=== PATIENT | male | born 1990 | race Caucasian/White ===

== ENCOUNTER 2017-10-25 00:54 | Emergency (ER) | payer SELFPAY ==
[2017-10-25 00:58] VITALS: BP 146/76; BMI 39.0
[2017-10-25] MEDS ORDERED: TORADOL 60 MG VIAL IM ONE (01:46)
--- NOTE | 2017-10-25 01:46 | DR.GENAD ---
HPI - Complaint/Symptoms Chief Complaint:: PT STATES THAT HE THINKS HE SPRAINED HIS LT ANKLE TONIGHT AT WORK. STATES THAT HE THINKS HE TURNED THE WRONG WAY. ALSO C/O "SORE PATCH" ON BOTTEM ON LT FOOT. - Source History Provided: Patient - Mode of Arrival Mode of Arrival: Ambulatory - Timing Onset of Chief Complaint: 10/25/17 PMH - PMH Past Medical History: No Past Surgical History: No - Family History History of Family Medical Conditions: Yes Family Medical History: Diabetes Mellitus - Social History Do you use any recreational Drugs:: No - infectious screening Have you traveled outside the country in the last 6 months?: No ROS - Review of Systems Eyes: No Symptoms Reported ENTM: No Symptoms Reported Respiratoy: No Symptoms Reported Cardiovascular: No Symptoms Reported Gastrointestinal/Abdominal: No Symptoms Reported Genitourinary: No Symptoms Reported Neurological: No Symptoms Reported Musculoskeletal: Left, Foot (Pain) Integumentary: No Symptoms Reported Hematologic/Lymphatic: No Symptoms Reported Endocrine: No Symptoms Reported Psychiatric: No Symptoms Reported All Other Systems: Reviewed and Negative PE - Vital Signs Vitals: Temperature 98.3 F Pulse Rate 90 Respiratory Rate 18 Blood Pressure 146/76 O2 Sat by Pulse Oximetry 99 - General Limitations: No Limitations General Appearance: Alert - Head Head Exam: Normal Inspection, Atraumatic - Eyes Eye exam: Normal Appearance, PERRL, EOMI - ENT ENT Exam: Normal Exam External Ear Exam: Normal External Inspection TM/Canal Exam: Bilateral Normal Nose Exam: Normal Nose Exam Mouth Exam: Normal Inspection Throat Exam: Normal Inspection - Neck Neck Exam: Normal Inspection - Chest Chest Inspection: Normal Inspection - Respiratory Respiratory Exam: Normal Lung Sounds Bilat Respiratory Exam: Bilateral Clear to Auscultation - Cardiovascular Cardiovascular Exam: Regular Rate - Abdominal Exam Abdominal Exam: Normal Inspection, Normal Bowel Sounds Abdominal Tenderness: negative: RUQ, RLQ, LUQ, LLQ, Epigastrium, Suprapubic, Diffuse, Mild, Moderate, Severe, Other - Extremities Extremities Exam: Tenderness (left ankle and plantar surface of foot, skin overgrowth) - Back Back Exam: Normal Inspection, Full ROM - Neurologic Neurological Exam: Alert, Oriented X3, CN II-XII Intact - Psychiatric Psychiatric Exam: Normal Affect - Skin Skin Exam: Warm, Dry, Intact ROR - XRAY XRAY Interpreted by: Radiologist, Self (ankle: no fracture or dislocation; bunion) - Diagnosis Discharge Problem: Bunion of left foot Left ankle sprain Qualifiers: Encounter type: initial encounter Involved ligament of ankle: anterior talofibular ligament Qualified Code(s): S93.492A - Sprain of other ligament of left ankle, initial encounter - Discharge Plan Condition: Stable - Follow ups/Referrals Follow ups/Referrals: NFD,None [Primary Care Provider] - 3 days - Instructions
[2017-10-25] MEDS ORDERED: TORADOL 60 MG VIAL ONE (01:47)
--- NOTE | 2017-10-25 02:10 | RAD ---
Three views of the left foot Indication: Left foot pain after injury Findings: No acute fracture or dislocation within the left foot. Lisfranc joint alignment is maintain ed. No localizing soft tissue swelling.. Impression: No acute radiographic abnormality within the left foot. Reported By:
--- NOTE | 2017-10-25 02:11 | RAD ---
Three views of the left ankle Indication: Left ankle pain after injury Findings: There is no fracture or dislocation of the left ankle. Ankle mortise is symmetric. No osteo chondral abnormality within talar dome. Ankle mortise is symmetric. Impression: No radiographic abnormality within the left ankle. Reported By:
== END 2017-10-25 02:00 | disposition home or self-care (01) ==
LOC: ER 00:54
DX: S93.492A Sprain of other ligament of left ankle, initial encounter (principal); M21.612 Bunion of left foot; Y33.XXXA Other specified events, undetermined intent, initial encounter; Y92.69 Other specified industrial and construction area as the place of occurrence of the external cause
CPT/HCPCS: 73610; 73630; 96372; 99282; J1885

== ENCOUNTER 2022-07-22 13:36 | Observation (INO) ==
[2022-07-22 13:45] VITALS: BMI 44.9
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
[2022-07-22] MEDS ORDERED: NS 1,000 ML IV 1,000 ML IV ONE (14:24)
[2022-07-22] MEDS ORDERED: MORPHINE SULFATE INJ 4 MG IVP ONE (14:26)
[2022-07-22] MEDS ORDERED: NS 1,000 ML IV 1,000 ML ONE (14:39)
[2022-07-22] MEDS ORDERED: MORPHINE SULFATE INJ 4 MG ONE (14:39)
[2022-07-22] MEDS ORDERED: CLEOCIN 600 MG IV PREMIX 600 MG/50 ML BAG IV ONE ×2 (14:40→19:51)
--- NOTE | 2022-07-22 14:56 | RAD ---
HISTORYsole of forefoot with abscessSTUDYFOOT, LEFTCOMPARISONNoneTECHNIQUEThree-view left foot.FINDINGSNo acute fracture, malalignment, or aggressive osseous lesion. The joint spaces appear preserved. No cortical destruction or periosteal reaction. Mild soft tissue swelling over the dorsum of the forefoot.IMPRESSIONNo radiographic evidence of osteomyelitis. Consider MRI with and without contrast given the indication.Electronically signed by: Oscar Lopez (Jul 22, 2022 14:54:20)
[2022-07-22 14:58] LABS: BASOPHILS # (AUTO) 0.1 X10^3/uL (0.0-0.1); BASOPHILS % (AUTO) 0.8 % (0.2-1.0); EOSINOPHILS # (AUTO) 0.3 x10^3/uL (0.0-0.2); EOSINOPHILS % (AUTO) 4.3 % (0.9-2.9); HEMATOCRIT 36.2 % (42.0-54.0); HEMOGLOBIN 12.5 g/dL (13.5-18.0); LYMPHOCYTES # (AUTO) 1.7 X10^3/uL (1.3-2.9); LYMPHOCYTES % (AUTO) 22.8 % (21.0-51.0); MEAN CORPUSCULAR HEMOGLOBIN 28.3 pg (27.0-34.0); MEAN CORPUSCULAR HGB CONC 34.5 g/dL (33.0-35.0); MEAN CORPUSCULAR VOLUME 81.9 fL (80.0-100.0); MEAN PLATELET VOLUME 7.2 fL (7.4-11.0); MONOCYTES # (AUTO) 0.5 x10^3/uL (0.3-0.8); NEUTROPHILS # (AUTO) 4.9 x10^3/uL (2.2-4.8); NEUTROPHILS % (AUTO) 66.1 % (42.0-75.0); RED BLOOD COUNT 4.42 X10^6/uL (4.7-6.0); RED CELL DISTRIBUTION WIDTH 13.6 % (11.6-16.5); WHITE BLOOD COUNT 7.5 X10^3/uL (3.6-10.0)
[2022-07-22] MEDS: CLEOCIN 600 MG IV PREMIX 600 MG/50 ML BAG IV SCH ×2 (15:02→21:16)
[2022-07-22 15:09] LABS: ALANINE AMINOTRANSFERASE 76 Units/L (12-78); ALBUMIN 3.2 g/dL (3.4-5.0); ALKALINE PHOSPHATASE 58 Units/L (46-116); ASPARTATE AMINO TRANSFERASE 28 Units/L (15-37); BLOOD UREA NITROGEN 8 mg/dL (7-18); CALCIUM 8.2 mg/dL (8.5-10.1); CARBON DIOXIDE 30.5 mmol/L (21-32); CHLORIDE 103 mmol/L (98-107); COR CA(FOR HYPOALB) 8.8 mg/dL (8.5-10.1); SODIUM 138 mmol/L (136-145); TOTAL PROTEIN 6.7 g/dL (6.4-8.2); eGFR NON BLACK RACES > 60 (>60)
[2022-07-22 15:26] LABS: BILIRUBIN,URINE NEGATIVE (NEGATIVE); BLOOD/HEMOGLOBIN,URINE NEGATIVE (NEGATIVE); GLUCOSE, URINE NEGATIVE (NEGATIVE); KETONES,URINE NEGATIVE (NEGATIVE); LEUKOCYTE ESTERASE ,URINE 3+ (NEGATIVE); NITRITES,URINE NEGATIVE (NEGATIVE); PROTEIN,URINE 1+ (NEGATIVE); UROBILINOGEN,URINE NORMAL (NORMAL)
[2022-07-22 15:34] LABS: LACTIC ACID 0.7 mmol/L (0.4-2.0)
[2022-07-22 15:43] LABS: COLOR,URINE YELLOW (YELLOW)
[2022-07-22 15:44] LABS: APPEARANCE,URINE CLOUDY (CLEAR); BACTERIA,URINE TRACE /HPF (NEGATIVE); RBC,URINE 0-2 /HPF (0-3); SQUAMOUS EPITHELIAL CELL,UR FEW /HPF (NEGATIVE); TRICHOMONAS,URINE FEW /HPF (NEGATIVE)
[2022-07-22] MEDS ORDERED: FLAGYL TAB 250 MG PO ONE (15:48)
[2022-07-22] MEDS ORDERED: TYLENOL 500 MG TAB EXTRA STRENGTH PO PRN (18:33)
[2022-07-22] MEDS: MORPHINE SULFATE INJ 4 MG IVP PRN ×2 (18:34→23:27)
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
[2022-07-22] MEDS ORDERED: NS 250 ML IV 250 ML IV ONE (19:51)
[2022-07-22] MEDS: PERCOCET TAB 5/325 MG PO PRN (21:20)
[2022-07-23] MEDS: CLEOCIN 600 MG IV PREMIX 600 MG/50 ML BAG IV SCH ×3 (05:42→22:20)
[2022-07-23] MEDS: MORPHINE SULFATE INJ 4 MG IVP PRN ×4 (05:44→20:45)
[2022-07-23 06:34] LABS: BASOPHILS % (AUTO) 0.7 % (0.2-1.0); EOSINOPHILS # (AUTO) 0.5 x10^3/uL (0.0-0.2); EOSINOPHILS % (AUTO) 7.8 % (0.9-2.9); HEMATOCRIT 36.4 % (42.0-54.0); HEMOGLOBIN 12.4 g/dL (13.5-18.0); LYMPHOCYTES # (AUTO) 1.7 X10^3/uL (1.3-2.9); LYMPHOCYTES % (AUTO) 29.1 % (21.0-51.0); MEAN CORPUSCULAR HEMOGLOBIN 27.9 pg (27.0-34.0); MEAN CORPUSCULAR HGB CONC 34.1 g/dL (33.0-35.0); MEAN CORPUSCULAR VOLUME 81.7 fL (80.0-100.0); MEAN PLATELET VOLUME 7.3 fL (7.4-11.0); MONOCYTES # (AUTO) 0.4 x10^3/uL (0.3-0.8); MONOCYTES % (AUTO) 7.6 % (0.0-13.0); NEUTROPHILS # (AUTO) 3.2 x10^3/uL (2.2-4.8); NEUTROPHILS % (AUTO) 54.8 % (42.0-75.0); RED BLOOD COUNT 4.45 X10^6/uL (4.7-6.0); RED CELL DISTRIBUTION WIDTH 13.5 % (11.6-16.5); WHITE BLOOD COUNT 5.8 X10^3/uL (3.6-10.0)
[2022-07-23 07:00] LABS: ALANINE AMINOTRANSFERASE 71 Units/L (12-78); ALBUMIN 2.8 g/dL (3.4-5.0); ALKALINE PHOSPHATASE 62 Units/L (46-116); ASPARTATE AMINO TRANSFERASE 28 Units/L (15-37); BLOOD UREA NITROGEN 7 mg/dL (7-18); CALCIUM 7.8 mg/dL (8.5-10.1); CARBON DIOXIDE 28.2 mmol/L (21-32); CHLORIDE 104 mmol/L (98-107); COR CA(FOR HYPOALB) 8.8 mg/dL (8.5-10.1); CREATININE 0.72 mg/dL (0.70-1.30); SODIUM 138 mmol/L (136-145); TOTAL PROTEIN 6.2 g/dL (6.4-8.2); eGFR NON BLACK RACES > 60 (>60)
[2022-07-23] MEDS ORDERED: ANCEF VIAL 1 GRAM ONE (12:28)
[2022-07-23] MEDS ORDERED: NS 1,000 ML IV 1,000 ML ONE (12:29)
[2022-07-23] MEDS ORDERED: NS 100 ML IV 100 ML ONE (12:29)
--- NOTE | 2022-07-23 12:31 | DR.H&P ---
H&P History & Physical for Day of: H&P Date: 07/23/22 Chief Complaint Chief Complaint: Left foot pain Allergies Allergies Allergy/AdvReac Type Severity Reaction Status Date / Time No Known Drug Allergies Allergy Verified 07/22/22 13:38 History of Present Illness History of Present Illness: Pt is a 32 year old male past medical history of substance abuse presenting with left foot pain and swelling for the past 2 days. He reports noticing a callous on the sole of left foot and has "cut" into it in the past to allow it to drain. This time he reports having more pain that is sharp and constant with some redness. Denies any trauma. Labs/imaging: Wbc 5.8, Hgb 12.4, Plt 195, Na 138, K 3.7, Creatinine 0.72, Glucose 103, A1c:5.0, UA negative, UDS:+amphetamine, +thc, COVID-19 negative, Blood cultures pending, XR left foot was obtained that revealed: Mild soft tissue swelling over the dorsum of the forefoot. Pt was admitted for left foot abscess. He was started on antibiotics IV clindamycin 600mg q8h and percocet 5mg q6h prn for pain. Podiatry consulted, will take patient to OR this afternoon for incision and drainage. Will continue to closely monitor and follow up labs. Past Medical History Additional Medical History: IV Drug Abuse - + Tox screen for amphetamines and marijuana Past Surgical History Surgical History: No History Family History Family Medical History: Diabetes Mellitus and Cancer Social History Does patient currently use any type of tobacco product: Yes Have you used tobacco products in the last 12 months: Yes Type of Tobacco Use: Cigarettes How many years tobacco product used: 10 Does any household member use tobacco: No Alcohol Use: None Drug Use: None Medications Home Medications: No Known Drug Allergies Allergy (Verified 07/22/22 13:38) CONTINUE taking the following medications NK 07/22/22 [History] Labs Result Diagrams: 07/23/22 06:14 07/23/22 06:14 Labs: Laboratory WBC 5.8 X10^3/uL (3.6-10.0) 07/23/22 06:14 RBC 4.45 X10^6/uL (4.7-6.0) L 07/23/22 06:14 Hgb 12.4 g/dL (13.5-18.0) L 07/23/22 06:14 Hct 36.4 % (42.0-54.0) L 07/23/22 06:14 MCV 81.7 fL (80.0-100.0) 07/23/22 06:14 MCH 27.9 pg (27.0-34.0) 07/23/22 06:14 MCHC 34.1 g/dL (33.0-35.0) 07/23/22 06:14 RDW 13.5 % (11.6-16.5) 07/23/22 06:14 Plt Count 195 X10^3/uL (150.0-450.0) 07/23/22 06:14 MPV 7.3 fL (7.4-11.0) L 07/23/22 06:14 Neut % (Auto) 54.8 % (42.0-75.0) 07/23/22 06:14 Lymph % (Auto) 29.1 % (21.0-51.0) 07/23/22 06:14 Story % (Auto) 7.6 % (0.0-13.0) 07/23/22 06:14 Eos % (Auto) 7.8 % (0.9-2.9) H 07/23/22 06:14 Baso % (Auto) 0.7 % (0.2-1.0) 07/23/22 06:14 Neut # (Auto) 3.2 x10^3/uL (2.2-4.8) 07/23/22 06:14 Lymph # (Auto) 1.7 X10^3/uL (1.3-2.9) 07/23/22 06:14 Story # (Auto) 0.4 x10^3/uL (0.3-0.8) 07/23/22 06:14 Eos # (Auto) 0.5 x10^3/uL (0.0-0.2) H 07/23/22 06:14 Baso # (Auto) 0.0 X10^3/uL (0.0-0.1) 07/23/22 06:14 Absolute Nucleated RBC 0.0 /100WBC 07/23/22 06:14 Sodium 138 mmol/L (136-145) 07/23/22 06:14 Corrected Sodium TNP 07/23/22 06:14 Potassium 3.7 mmol/L (3.5-5.1) 07/23/22 06:14 Chloride 104 mmol/L (98-107) 07/23/22 06:14 Carbon Dioxide 28.2 mmol/L (21-32) 07/23/22 06:14 BUN 7 mg/dL (7-18) 07/23/22 06:14 Creatinine 0.72 mg/dL (0.70-1.30) 07/23/22 06:14 Est GFR (MDRD) Af Amer > 60 (>60) 07/23/22 06:14 Est GFR (MDRD) Non-Af > 60 (>60) 07/23/22 06:14 Glucose 103 mg/dL (65-99) H 07/23/22 06:14 Hemoglobin A1c 5.0 % 07/23/22 06:14 Lactic Acid 0.7 mmol/L (0.4-2.0) 07/22/22 14:42 Calcium 7.8 mg/dL (8.5-10.1) L 07/23/22 06:14 Corrected Calcium 8.8 mg/dL (8.5-10.1) 07/23/22 06:14 Total Bilirubin 0.20 mg/dL (0.2-1.0) 07/23/22 06:14 AST 28 Units/L (15-37) 07/23/22 06:14 ALT 71 Units/L (12-78) 07/23/22 06:14 Alkaline Phosphatase 62 Units/L (46-116) 07/23/22 06:14 Total Protein 6.2 g/dL (6.4-8.2) L 07/23/22 06:14 Albumin 2.8 g/dL (3.4-5.0) L 07/23/22 06:14 Globulin 3.4 g/dL (2.5-4.5) 07/23/22 06:14 Albumin/Globulin Ratio 0.8 Ratio (1.1-2.1) L 07/23/22 06:14 Specimen Type Clean catch urine 07/22/22 14:51 Urine Color Yellow (YELLOW) 07/22/22 14:51 Urine Appearance Cloudy (CLEAR) 07/22/22 14:51 Urine pH 6.0 (5.0 - 8.0) 07/22/22 14:51 Ur Specific [place] 1.020 (1.000-1.030) 07/22/22 14:51 Urine Protein 1+ (NEGATIVE) 07/22/22 14:51 Urine Glucose (UA) Negative (NEGATIVE) 07/22/22 14:51 Urine Ketones Negative (NEGATIVE) 07/22/22 14:51 Urine Blood Negative (NEGATIVE) 07/22/22 14:51 Urine Nitrite Negative (NEGATIVE) 07/22/22 14:51 Urine Bilirubin Negative (NEGATIVE) 07/22/22 14:51 Urine Urobilinogen Normal (NORMAL) 07/22/22 14:51 Ur Leukocyte Esterase 3+ (NEGATIVE) 07/22/22 14:51 Urine RBC 0-2 /HPF (0-3) 07/22/22 14:51 Urine WBC 20-30 /HPF (0-5) A 07/22/22 14:51 Ur Squamous Epith Cells Few /HPF (NEGATIVE) 07/22/22 14:51 Urine Bacteria Trace /HPF (NEGATIVE) 07/22/22 14:51 Urine Trichomonas Few /HPF (NEGATIVE) 07/22/22 14:51 Ur Culture Indicated? No/not indicated 07/22/22 14:51 Urine Opiates Screen Negative (NEG=<300) 07/22/22 14:51 Urine Methadone Screen Negative (NEG=<300) 07/22/22 14:51 Ur Barbiturates Screen Negative (NEG=<200) 07/22/22 14:51 Ur Phencyclidine Scrn Negative (NEG=<25) 07/22/22 14:51 Ur Amphetamines Screen Positive (NEG=<1000) 07/22/22 14:51 U Benzodiazepines Scrn Negative (NEG=<200) 07/22/22 14:51 Urine Cocaine Screen Negative (NEG=<300) 07/22/22 14:51 U Marijuana (THC) Screen Negative (NEG=<50) 07/22/22 14:51 SARS-CoV-2 (PCR) Negative (NEGATIVE) 07/22/22 15:13 Review of Systems Constitutional: No Symptoms Reported Eyes: No Symptoms Reported ENT: No Symptoms Reported Respiratory: No Symptoms Reported Cardiovascular: No Symptoms Reported Gastrointestinal: No Symptoms Reported Genitourinary: No Symptoms Reported Musculoskeletal: Other (Pain on palpation of his left foot globally. Painful passive and active ROM to digits. ) Skin: Other (left foot) Neurological: Other (Light touch and protective sensation intact.) Physical Exam Vital Signs: Temperature 97.6 F Pulse Rate [Left Brachial] 82 Pulse Rate 105 Respiratory Rate 20 Blood Pressure [Left Arm] 131/77 Blood Pressure 139/77 O2 Sat by Pulse Oximetry 98 Oriented: Normal Eyes: Normal Ear: Normal Nose: Normal Throat: Normal Respiratory: Clear Throughout Cardiovascular: Normal : Normal Auscultation: Bowel Sounds: Normal Palpation: Normal Tenderness: Normal Skin: Other (Left foot has palpable abscess on the plantar aspect of the 2nd and 3rd metatarsal heads. Hyperkeratotic lesion. Some erythema and fluctuant. ) Musculoskeletal: Normal Psychiatric: Normal Mood Description: Calm and Appropriate Affect: Normal Speech Pattern: Clear and Appropriate Assessment/Plan (1) Foot abscess, left: Narrative Support Text: Continue IV abx Podiatry consulted with plan to I&D this afternoon Status: Acute (2) Cellulitis of left foot: Status: Acute (3) Amphetamine abuse: Status: Acute Review H&P Reviewed: Yes Patient was examined?: Yes
[2022-07-23] MEDS ORDERED: MARCAINE 0.5% ONE (13:04)
[2022-07-23] MEDS ORDERED: FENTANYL VIAL INJ 100 mcg ONE (13:13)
[2022-07-23] MEDS ORDERED: KETAMINE HCL ONE (13:13)
[2022-07-23] MEDS ORDERED: DIPRIVAN VIAL ONE (13:13)
[2022-07-23] MEDS ORDERED: VERSED ONE (13:13)
[2022-07-23] MEDS ORDERED: [UNRECOGNIZED DRUG - SUPPLY] TOP SCH (14:30)
[2022-07-23] MEDS: PERCOCET TAB 5/325 MG PO PRN (14:40)
--- NOTE | 2022-07-23 14:42 | DR.OPNOTE ---
OP NOTE Pre-Op Diagnosis: 1. Left plantar foot abscess with cellulitis Post-Op Diagnosis: Same Procedure Date Date Of Procedure: 07/23/22 Procedure: Indications: This is a 32 year old male who presented to the emergency room for left foot pain with swelling to the bottom of his foot. He has significant history of IV drug use with multiple positive drugs on toxicology screen over the last visits. Podiatry was consulted for left foot abscess. Patient has a palpable mass on the plantar aspect of his left foot around the second, third, and fourth metatarsal heads along the weight bearing surface. There is a hyperkeratotic lesion present in this area as well. He admits a friend tried to debride this callus with a razor several days ago and it has subsequently gotten worse over time. The apparent abscess measures approximately 3 cm in diameter, is fluctuant, and has an erythematous base extending approximately 2 cm in all directions from the lesion including onto the dorsum of the foot. The left foot is also edematous in the forefoot, most notably on the dorsum of the foot around digits 2 and 3. His vascular status appears intact with palpable pulses, hair growth present to bilateral feet, and good capillary refill time to throughout the foot. Neurologically his protective and light touch sensation is also intact with no focal deficits. He is still able to flex and extend his digits actively, although this causes him a lot of pain. He has a rectus foot type with mildly contracted lesser digits bilaterally. With all this in mind, X-rays were ordered. These did not reveal any soft tissue emphysema or osseous erosions of the metatarsals and surrounding bones, only some soft tissue swelling in the area of the abscess. Standard labs were also ordered, his white blood cell count and neutrophils are within normal limits. I did also order an HgbA1c which was 5. His vitals have been stable throughout his visit. Additionally, his admitting position started him on clindamycin, as well as gave him a dose of flagyl. I have extensively discussed treatment options with him. I have discussed surgery as well as all the risks associated with today's procedure. I have given him no guarantees as to the outcome. Knowing this, he expressed verbal and written consent to proceed. All of his questions have been answered to the best of my ability. Procedures: After satisfactory preoperative evaluation the patient was brought back to the operating room and placed on the operative table in the supine position. The nurse bicycle service technician administered IV sedation in an appropriate amount to achieve sedation. A timeout was held in regards to patient, procedure, allergies, antibiotics and laterality. All in the room were in agreement. A well-padded pneumatic tourniquet was then placed on the left ankle and set to 250 mmHg, however it was not inflated throughout the case. The left foot was then prepped and draped in a sterile fashion and the left foot was lower it onto the operative field. Attention was directed to the plantar aspect of the left forefoot where there was a large fluctuate mass. Local anesthesia was provided in the form of approximately 30 cc's of 0.5 percent Marcaine plain - I did this in a v block fashion on the dorsal aspect of the foot, as well as in the intermetatarsal spaces two through four, and the planter aspect of the foot about the metatarsal bases. Once anesthesia was achieved I utilized a number 15 blade to create a linear incision directly over the mass extending from just proximal to the digital sulcus into the plantar midfoot. The incision measured approximately 5 cm in length and was down to the level of the subcutaneous tissue. Upon incision there was a yellowish, thick, foul smelling drainage that exuded which amounted to approximately 5 cc's. I then utilized the set of culture swabs to get a deep culture of this fluid. This was passed off and sent for aerobic / anaerobic / gram stain microbiological examination. I then utilized a curved hemostat to bluntly dissect through the subcutaneous tissues and down to the level of the deep fascia. Next, I utilized a freer elevator to probe and all directions to identify any tracks or sinuses. I did identify one probable track through the intermetatarsal space that led dorsally. I extended the freer elevator through this space until it reached the dorsal skin. I use this as a landmark and utilizing a 15 blade created a linear incision over the freer, measuring approximately 1 cm in length and down to the level of the subcutaneous tissues. I once again utilize the curved hemostat to bluntly dissect down to the level of the extensor tendons. I then utilized the freer elevator to probe in all directions, but was unable to find any further tracking. At this time I utilize the Prontosan to copiously lavage out the area both plantarly and dorsally. I then reinvestigated the abscess plantarly and noted a moderate amount of discolored non-viable tissue down to the level of the deep fascia. I then used a rongeur to excise any of this tissue until I was satisfied that all the margins contained only healthy, viable, bleeding tissue. I once again lavaged the surgical site with the Prontosan. Following this, I did not appreciate any extension of the infection into any osseous structures. With this in mind I did not feel it was necessary nor pertinent to take a bone biopsy, as I did not want to violate the cortex of the metatarsal. I then utilized the 0.25-in Iodoform packing to gently pack it into the plantar aspect of the abscess , leaving a 2 cm tail extending out of the wound bed. I then repeated this process for the do rsal aspect of the foot surgical incision as well. Once I was satisfied that the foot was devoid of all infected tissue and copiously lavaged again with the Prontosan and turned my attention to closure. With the amount of drainage that was present I did not feel it was appropriate to primarily close the entire wound, so I elected for a partial closure with the packing. I utilized a 3-0 nylon to close the skin of both incisions in a simple interrupted fashion leaving room for the packing and any potential drainage. Next, a soft sterile dressing was applied consisting of 4x4 gauze, leigh ann, and an Teodoro wrap. The patient tolerated anesthesia and the procedure well and was returned to his room on the floor following a period of post-operative monitoring. Post-op Orders: Dispense surgical shoe, to be worn at all times while out of bed. Non weight bearing to the left forefoot. Weight bearing to the heel only for transfers and while in the post-operative shoe. Elevate operative extremity times two pillows Leave dressing intact, reinforce as needed with cling and Teodoro wrap for any strikethrough. Will remove the packing 24-48 hours after surgery. Adjust antibiotic therapy to be targeted towards deep cultures. Pain medication regimen orders in place. Adjust as needed, history of drug abuse. Type of Anesthesia: Local (MAC with local) Findings: Left foot shows a plantar abscess along the heads of metatarsals 2-4. This area is red, hot, and swollen with an area of erythema extending approximately 2cm around the central abscess. Upon incising the abscess there was a galan of yellow, foul smelling drainage, approximately 5cc's worth. The abscess was down to the level of deep fascia, but there was not extension to the osseous structures that I could appreciate. All devitalized tissue surrounding the abscess was sharply excised down to the level of deep fascia. Specimen/Pathology: Left foot abscess material was cultured (x2) and sent for aero/anaerobic culture with gram stain. EBL: 20cc Drains/Tubes Comment: Iodoform packing (x2 locations) of left foot Hardware: None Cultures: Left plantar forefoot abscess Complications:: None Needle/Sponge Count:: Correct Disposition/Condition: Pt. tolerated anesthesia and the procedure well. Returned to room on floor following period of post operative monitoring.
[2022-07-23] MEDS ORDERED: PERCOCET TAB 5/325 MG PO ONE (18:26)
[2022-07-23] MEDS ORDERED: PERCOCET TAB 5/325 MG ONE (18:26)
[2022-07-24] MEDS: MORPHINE SULFATE INJ 4 MG IVP PRN ×4 (00:30→12:35)
[2022-07-24] MEDS: PERCOCET TAB 5/325 MG PO PRN ×3 (02:00→16:55)
[2022-07-24] MEDS: CLEOCIN 600 MG IV PREMIX 600 MG/50 ML BAG IV SCH (05:21)
[2022-07-24 05:22] LABS: BASOPHILS # (AUTO) 0.1 X10^3/uL (0.0-0.1); BASOPHILS % (AUTO) 0.7 % (0.2-1.0); EOSINOPHILS # (AUTO) 0.4 x10^3/uL (0.0-0.2); EOSINOPHILS % (AUTO) 3.6 % (0.9-2.9); HEMOGLOBIN 12.8 g/dL (13.5-18.0); LYMPHOCYTES # (AUTO) 1.4 X10^3/uL (1.3-2.9); LYMPHOCYTES % (AUTO) 12.6 % (21.0-51.0); MEAN CORPUSCULAR HEMOGLOBIN 28.3 pg (27.0-34.0); MEAN CORPUSCULAR HGB CONC 34.7 g/dL (33.0-35.0); MEAN CORPUSCULAR VOLUME 81.5 fL (80.0-100.0); MEAN PLATELET VOLUME 7.4 fL (7.4-11.0); MONOCYTES # (AUTO) 0.6 x10^3/uL (0.3-0.8); MONOCYTES % (AUTO) 5.6 % (0.0-13.0); NEUTROPHILS # (AUTO) 8.5 x10^3/uL (2.2-4.8); NEUTROPHILS % (AUTO) 77.5 % (42.0-75.0); RED BLOOD COUNT 4.54 X10^6/uL (4.7-6.0); RED CELL DISTRIBUTION WIDTH 13.6 % (11.6-16.5)
[2022-07-24 05:42] LABS: ALANINE AMINOTRANSFERASE 63 Units/L (12-78); ALBUMIN 3.1 g/dL (3.4-5.0); ALKALINE PHOSPHATASE 65 Units/L (46-116); ASPARTATE AMINO TRANSFERASE 27 Units/L (15-37); BLOOD UREA NITROGEN 8 mg/dL (7-18); CALCIUM 8.1 mg/dL (8.5-10.1); CARBON DIOXIDE 30.3 mmol/L (21-32); CHLORIDE 101 mmol/L (98-107); COR CA(FOR HYPOALB) 8.8 mg/dL (8.5-10.1); CREATININE 0.84 mg/dL (0.70-1.30); SODIUM 137 mmol/L (136-145); TOTAL PROTEIN 6.8 g/dL (6.4-8.2); eGFR NON BLACK RACES > 60 (>60)
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
[2022-07-24 12:23] VITALS: BP 150/84
--- NOTE | 2022-07-24 13:11 | NOTE.SOAP ---
Soap Note Note for Day of Date of Exam: 07/24/22 Subjective Data Subjective Data: Patient was seen bedside today with nursing staff member present. Dressing appears disheveled with toes unwrapped and post operative shoe bedside. Patient states he had moderate to severe pain last night which was helped by his IV and PO pain medications. He states he had not walked on his foot due to the pain. Following a 4mg morphine dose administration for bandage changes he did not state any further pain at this time. Patient denies f,c,n,v,sob, and cp. Objective Data Objective Data: VASC: DP/PT pulses are palpable (2/4) bilaterally. CFT is brisk to all digits bilaterally. Hair growth noted to bilateral feet in equal distribution. Moderate non-pitting edema remains in left forefoot but at a lessened level than yesteraday. No varicosities. DERM: Incisions are acceptably coapted at this time - plantar incision has an area centrally that has been left open intentionally to allow for drainage and prevent further abscess formation. Sutures are intact for both incisions. Packing present which was pulled without incident today, no packing added as the surgical sites do not demonstrate an empty space. Erythema noted to left forefoot, lessening over time. NEURO: Protective and light touch sensation intact. No focal deficits noted. MSK: Pain on palpation of left forefoot. Able to wiggle digits actively on left. No pain on compression of posterior muscle group or other signs of DVT. Compartments are soft and compressible. Assessment Assessment: -S/p Left foot I&D of multiple compartments (DOS 07-23-22) -Left forefoot abscess, plantar, submet 2-4 -Left foot cellulitis -Hx of IV drug abuse - PICC lines with caution Plan Plan: -Patient evaluated today and chart reviewed. -From my standpoint he is okay for DC with outpatient follow up in clinic (2 weeks from today) in [place]. -Abx: Doxycycline 100mg BID and Cipro 500 BID for 14 days. Placed in chart. Will follow cultures and adjust as needed at clinic follow up. -Post operative shoe dispensed, noted bedside. -Pain control: [place] 5mg Q6H for 5 days. Placed in chart. -Wound care instructions: Daily dressing changes with gauze, leigh ann, and an LELIA wrap. Placed in chart. Dressing changed today prior to DC. -WB to left heel only and only while in post operative shoe. Crutches were offered to aid in ambulation but patient deferred. -Instructed patient to call for any further signs of abscess formation or wors ening of infection. Instructed to keep the area clean, dry, and covered at all times - he asked if he could "let it breath" and I instructed him this was never a good idea. -Okay for DC, thank you for involving me in the care of this patient.
--- NOTE | 2022-07-29 10:20 | W.DIS.FURT ---
Summary of Discharge Discharge Summary of Date Date of Exam: 07/24/22 Admission Date Date of Admission: 07/22/22 Admission Diagnosis Patient Problems (Updated 07/22/22 @ 18:50 by Edu Avila) Cellulitis of left foot (Acute) L03.116 Hospital Course: Pt is a 32 year old male past medical history of substance abuse admitted for abscess of left foot. He was started on antibiotics:IV clindamycin. Podiatry was consulted-Dr Hernandez, and Incision and drainage was performed. Culture was obtained, results pending to be followed outpatient. Pt responded well to treatments. He was discharged with antibiotics ciprofloxacin and doxycycline. Orders were placed for daily wound changes and he will follow up in 2 weeks with podiatry. Pt discharged in stable condition. Labs: Laboratory Last Values WBC 11.0 X10^3/uL (3.6-10.0) H 07/24/22 04:58 RBC 4.54 X10^6/uL (4.7-6.0) L 07/24/22 04:58 Hgb 12.8 g/dL (13.5-18.0) L 07/24/22 04:58 Hct 37.0 % (42.0-54.0) L 07/24/22 04:58 MCV 81.5 fL (80.0-100.0) 07/24/22 04:58 MCH 28.3 pg (27.0-34.0) 07/24/22 04:58 MCHC 34.7 g/dL (33.0-35.0) 07/24/22 04:58 RDW 13.6 % (11.6-16.5) 07/24/22 04:58 Plt Count 229 X10^3/uL (150.0-450.0) 07/24/22 04:58 MPV 7.4 fL (7.4-11.0) 07/24/22 04:58 Neut % (Auto) 77.5 % (42.0-75.0) H 07/24/22 04:58 Lymph % (Auto) 12.6 % (21.0-51.0) L 07/24/22 04:58 [place] % (Auto) 5.6 % (0.0-13.0) 07/24/22 04:58 Eos % (Auto) 3.6 % (0.9-2.9) H 07/24/22 04:58 Baso % (Auto) 0.7 % (0.2-1.0) 07/24/22 04:58 Neut # (Auto) 8.5 x10^3/uL (2.2-4.8) H 07/24/22 04:58 Lymph # (Auto) 1.4 X10^3/uL (1.3-2.9) 07/24/22 04:58 [place] # (Auto) 0.6 x10^3/uL (0.3-0.8) 07/24/22 04:58 Eos # (Auto) 0.4 x10^3/uL (0.0-0.2) H 07/24/22 04:58 Baso # (Auto) 0.1 X10^3/uL (0.0-0.1) 07/24/22 04:58 Absolute Nucleated RBC 0.0 /100WBC 07/24/22 04:58 Sodium 137 mmol/L (136-145) 07/24/22 04:58 Corrected Sodium TNP 07/24/22 04:58 Potassium 4.4 mmol/L (3.5-5.1) 07/24/22 04:58 Chloride 101 mmol/L (98-107) 07/24/22 04:58 Carbon Dioxide 30.3 mmol/L (21-32) 07/24/22 04:58 BUN 8 mg/dL (7-18) 07/24/22 04:58 Creatinine 0.84 mg/dL (0.70-1.30) 07/24/22 04:58 Est GFR (MDRD) Af Amer > 60 (>60) 07/24/22 04:58 Est GFR (MDRD) Non-Af > 60 (>60) 07/24/22 04:58 Glucose 103 mg/dL (65-99) H 07/24/22 04:58 Hemoglobin A1c 5.0 % 07/23/22 06:14 Lactic Acid 0.7 mmol/L (0.4-2.0) 07/22/22 14:42 Calcium 8.1 mg/dL (8.5-10.1) L 07/24/22 04:58 Corrected Calcium 8.8 mg/dL (8.5-10.1) 07/24/22 04:58 Total Bilirubin 0.30 mg/dL (0.2-1.0) 07/24/22 04:58 AST 27 Units/L (15-37) 07/24/22 04:58 ALT 63 Units/L (12-78) 07/24/22 04:58 Alkaline Phosphatase 65 Units/L (46-116) 07/24/22 04:58 Total Protein 6.8 g/dL (6.4-8.2) 07/24/22 04:58 Albumin 3.1 g/dL (3.4-5.0) L 07/24/22 04:58 Globulin 3.7 g/dL (2.5-4.5) 07/24/22 04:58 Albumin/Globulin Ratio 0.8 Ratio (1.1-2.1) L 07/24/22 04:58 Specimen Type Clean catch urine 07/22/22 14:51 Urine Color Yellow (YELLOW) 07/22/22 14:51 Urine Appearance Cloudy (CLEAR) 07/22/22 14:51 Urine pH 6.0 (5.0 - 8.0) 07/22/22 14:51 Ur Specific [place] 1.020 (1.000-1.030) 07/22/22 14:51 Urine Protein 1+ (NEGATIVE) 07/22/22 14:51 Urine Glucose (UA) Negative (NEGATIVE) 07/22/22 14:51 Urine Ketones Negative (NEGATIVE) 07/22/22 14:51 Urine Blood Negative (NEGATIVE) 07/22/22 14:51 Urine Nitrite Negative (NEGATIVE) 07/22/22 14:51 Urine Bilirubin Negative (NEGATIVE) 07/22/22 14:51 Urine Urobilinogen Normal (NORMAL) 07/22/22 14:51 Ur Leukocyte Esterase 3+ (NEGATIVE) 07/22/22 14:51 Urine RBC 0-2 /HPF (0-3) 07/22/22 14:51 Urine WBC 20-30 /HPF (0-5) A 07/22/22 14:51 Ur Squamous Epith Cells Few /HPF (NEGATIVE) 07/22/22 14:51 Urine Bacteria Trace /HPF (NEGATIVE) 07/22/22 14:51 Urine Trichomonas Few /HPF (NEGATIVE) 07/22/22 14:51 Ur Culture Indicated? No/not indicated 07/22/22 14:51 Urine Opiates Screen Negative (NEG=<300) 07/22/22 14:51 Urine Methadone Screen Negative (NEG=<300) 07/22/22 14:51 Ur Barbiturates Screen Negative (NEG=<200) 07/22/22 14:51 Ur Phencyclidine Scrn Negative (NEG=<25) 07/22/22 14:51 Ur Amphetamines Screen Positive (NEG=<1000) 07/22/22 14:51 U Benzodiazepines Scrn Negative (NEG=<200) 07/22/22 14:51 Urine Cocaine Screen Negative (NEG=<300) 07/22/22 14:51 U Marijuana (THC) Screen Negative (NEG=<50) 07/22/22 14:51 SARS-CoV-2 (PCR) Negative (NEGATIVE) 07/22/22 15:13 Reason For Visit: LEFT FOOT ABSCESS WITH CELLULITIS Discharge Diagnosis All Active Problems (Updated 07/22/22 @ 18:50 by Edu Avila) Foot abscess, left (Acute) Dermatitis (Active) Gastroenteritis (Acute) Abdominal pain (Acute) Left ankle sprain (Acute) Bunion of left foot (Acute) Knee sprain (Acute) Fall (Acute) Multiple transverse process fractures (Acute) Fracture of transverse process of lumbar vertebra (Acute) Fracture of rib (Acute) STI (sexually transmitted infection) (Acute) Acute epididymitis (Acute) Tooth ache (Acute) Dental caries (Acute) Pain, dental (Acute) Acute gingivitis (Acute) Jaw pain (Acute) Back pain without sciatica (Acute) Elbow abrasion (Acute) Pain, dental (Acute) Elbow fracture (Acute) Gingivitis (Acute) Urinary tract stones (Acute) OD (overdose of drug) (Acute) UTI (urinary tract infection) (Acute) Opiate addiction (Acute) Amphetamine abuse (Acute) Cellulitis of left foot (Acute) Plan of Treatment: Continue with present treatment and follow up plan. Pt is to keep follow up appointment as instructed and take medications as ordered. Discharge Medications Discharge Medications: No Known Drug Allergies Allergy (Verified 07/22/22 13:38) New Prescriptions ciprofloxacin HCl 500 mg tablet 500 mg PO BID 14 days #28 tabs 07/24/22 [Rx] doxycycline hyclate 100 mg capsule 100 mg PO BID 14 days #28 caps 07/24/22 [Rx] Discharge Disposition Discharge Disposition: Home Discharge Condition: Stable Discharge Plan Discharge Plan Hospital Course: Pt is a 32 year old male past medical history of substance abuse admitted for abscess of left foot. He was started on antibiotics:IV clindamycin. Podiatry was consulted-Dr Hernandez, and Incision and drainage was performed. Culture was obtained, results pending to be followed outpatient. Pt responded well to treatments. He was discharged with antibiotics ciprofloxacin and doxycycline. Orders were placed for daily wound changes and he will follow up in 2 weeks with podiatry. Pt discharged in stable condition. Patient Disposition: 01 HOME, SELF-CARE Condition: Stable Health Concerns: Post Hospitalization: new medications and changes needed to prevent readmission or further decline. Pt educated and given instructions on all concerns. Plan of Treatment: Continue with present treatment and follow up plan. Pt is to keep follow up appointment as instructed and take medications as ordered. Prescriptions: New doxycycline hyclate 100 mg Capsule 100 mg PO BID 14 Days Qty: 28 0RF ciprofloxacin HCl 500 mg Tablet 500 mg PO BID 14 Days Qty: 28 0RF Orders to Discharge Patient Discharge Orders: Discharge (Routine); Ordered 07/24/22 Ordered By: Edu Avila Follow ups/Referrals Follow ups/Referrals: Heath Hernandez [CONSULTING PHYSICIAN] - 08/07/22 2:00 pm Kit HANKS [Primary Care Provider] - 3 days Instructions Instructions: Skin Abscess, Cellulitis, Adult, Skin Abscess, [id number], Cellulitis, Adult, [id number], Incision and Drainage, Care After Activity Restrictions/Additional Instructions: DRESSING CHANGE ORDERS: CHANGE DAILY TO LEFT FOOT. WRAP WITH GAUZE, PIA, AND AN LELIA WRAP. Stand Alone Forms: Excuse From Work or School, Precautions for COVID19, [facility], Patient Portal, Social Distancing
== END 2022-07-24 17:05 | disposition home or self-care (01) ==
LOC: MED/SURG 13:36 → ER 13:36 → MED/SURG 17:30
PROVIDERS: ADMIT Family Medicine; ATTEND Family Medicine
DX: M79.89 Other specified soft tissue disorders; L03.116 Cellulitis of left lower limb; B95.7 Other staphylococcus as the cause of diseases classified elsewhere; Z20.822 Contact with and (suspected) exposure to COVID-19; F15.10 Other stimulant abuse, uncomplicated; L02.612 Cutaneous abscess of left foot

== ENCOUNTER 2023-01-24 22:55 | Inpatient (IN) ==
[2023-01-24] MEDS ORDERED: PHARMACY CONSULT - VANCOMYCIN XX SCH (23:45)
--- NOTE | 2023-01-24 23:47 | DR.PEXTPAI ---
HPI Time seen Time Seen by Provider: 01/24/23 23:46 PCP Primary Care Physician: DEMARIO HPI Comment HPI Comment: HISTORY BELOW. Complaint/Symptoms Chief Complaint Doctor Comments: REDNESS SWELLING LEFT HAND, FOREARM AND ELBOW. PATIENT WAS IN ER 01/13/2023 WITH SAME SYMPTOM. WAS ADMITTED TO HOSPITAL. HE SIGN OUT AMA. SEEN IN ER 01/22/2023. US LUE DONE AND SUPERFICIAL PHLEBITIS NOTED. DISCHARGE HOME ON BACTRIM DS.. HAVE NOT STARTED TAKING MED YET. BLOOD CULTURE DONE 01/13/2023 GREWSTREP ANGINOSUS SENSITIVE TO PENICILLIN AND CEPHALOSPORINS. HERE TODAY WITH WORSENING OF HIS LUE SYMPTOMS. HE IS RUNNING LOW GRADE FEVER. Chief Complaint:: PT STATES THE LUMP ON HIS LEFT OUTER ARM CAME UP TWO NIGHTS CAME UP. HE STATES HE IS HURTING VERY BAD. IT IS NOTED TO BE VERY RED AND LARGE. THE INNER AC OF THE ARM IS ALSO RED, SWOLLEN AND PAINFUL. Self Treatment fo Chief Complaint: ANTIBIOTICS PRESCRIBED BY ER DOCTOR TWO NIGHTS AGO. Source History Provided: Patient Mode of arrival Mode of Arrival: Ambulatory Timing Onset of Chief Complaint: 01/09/23 PMH Past Surgical History Past Surgical History: Yes Family History History of Family Medical Conditions: Yes Social Does patient currently use any type of tobacco product: Yes Type of Tobacco Use: Cigarettes Alcohol Use: None Vaccines Pneumococcal Vaccine Every 5 Yrs: No infectious screening Have you traveled outside the country in the last 6 months?: No Isolation: Standard ROS (PED) Review of Systems Constitutional: Chills and Fever Eyes: No Symptoms Reported ENTM: No Symptoms Reported; negative Nasal Discharge or Nose Congestion Respiratoy: No Symptoms Reported; negative Moist Cough, Short of Breath or Wheezing Cardiovascular: No Symptoms Reported; negative Chest Pain Gastrointestinal/Abdominal: negative Abdominal Pain, Diarrhea or Vomiting Genitourinary: No Symptoms Reported; negative Dysuria Neurological: negative Headache or Dizziness Musculoskeletal: Elbow (LT), Forearm (LT) and Hand (LT) Integumentary: Other (REDNESS, SWELLING FOREARM, ELBOW AND HAND ON LEFT SIDE.) Hematologic/Lymphatic: No Symptoms Reported; negative Easy Bruising or Swollen Glands Endocrine: No Symptoms Reported; negative Increased Thirst or Increased Urine Psychiatric: No Symptoms Reported All Other Systems: Reviewed and Negative PE Vital Signs Vitals: Temperature 99.1 F Pulse Rate 118 Respiratory Rate 20 Blood Pressure [Left Arm] 133/68 Blood Pressure 128/67 O2 Sat by Pulse Oximetry 99 General Limitations: No Limitations General Appearance: Alert and In No Apparent Distress Head Head Exam: Normal Inspection Eyes Eye exam: Normal Appearance; negative Scleral Icterus or Conjunctival Injection ENT ENT Exam: Normal Exam, Normal Oropharynx, Normal External Ear Exam and TM's Normal Bilaterally Neck Neck Exam: Normal Inspection and Trachea Midline; negative Tenderness Chest Chest Inspection: Normal Inspection and Symmetric Chest Wall Rise; negative Tenderness Respiratory Respiratory Exam: Normal Lung Sounds Bilat; negative Accessory Muscle Use, Chest Wall Tenderness or Respiratory Distress Respiratory Exam: Bilateral: Clear to Auscultation Cardiovascular Cardiovascular Exam: Regular Rate, Normal Rhythm and Normal Heart Sounds; negative Systolic Murmur or Diastolic Murmur Abdominal Exam Abdominal Exam: Normal Inspection, Normal Bowel Sounds and Soft; negative Tenderness Extremities Extremities Exam: Tenderness (REDNESS, SWELLING AND TENDERNESS LEFT HAND, FOREARM, ELBOW AND LOWER UPPER ARM ON LEFT SIDE.) Upper Extremities Forearm Exam: Other (LEFT FOREARM WITH ARM SWELLING THAT IS LITZY AND TENDER/ABSCESS.) Upper Ext. Vascular Exam: Capillary Refill (INTACT.), Radial Pulse (INTACT.) and Ulnar Pulse (INTACT.) Back Back Exam: Normal Inspection; negative (R) CVA Tenderness or (L) CVA Tenderness Neurological Neurological Exam: Alert and Oriented X3; negative Motor Sensory Deficit Psychiatric Psychiatric Exam: Normal Affect and Normal Mood Skin Type of Lesion: Abscess (LT FOREARM.) and Other (CELLULITIS LUE.) MDM Differential Diagnosis Differential Diagnosis: Other (BACTEREMIA, CELLULIRIS LUE, ABSCESS LUE.) COURSE Treatment Treatment: SEE ORDERS DONE WHILE PATIENT WAS IN ER. PATIENT WITH BACTERIA, LUE CELLULITIS WHO IS IN ER IS ADMITTED TO HOSPITAL FOR FURTHER MANAGEMENT. GIVEN TORADOL 30MG IV AND VANCOMYCIN 1G IVPB ANS IS WHILE IN ER. Consultation Consultation Comments: DISCUSSED PATIENT WITH DR. MATSON. HE WILL ADMIT PATIENT. Education/Counseling Education/Counseling: Patient ROR Labs Reviewed Laboratory Results Reviewed?: Yes Result Diagrams: 01/26/23 09:49 01/26/23 09:49 Laboratory: 01/25/23 00:20 Blood Blood Culture - Final 01/25/23 00:01 Blood Blood Culture - Final WBC 16.7 X10^3/uL (3.6-10.0) H 01/25/23 00:01 RBC 4.48 X10^6/uL (4.7-6.0) L 01/25/23 00:01 Hgb 11.6 g/dL (13.5-18.0) L 01/25/23 00:01 Hct 35.0 % (42.0-54.0) L 01/25/23 00:01 MCV 78.2 fL (80.0-100.0) L 01/25/23 00:01 MCH 26.0 pg (27.0-34.0) L 01/25/23 00:01 MCHC 33.2 g/dL (33.0-35.0) 01/25/23 00:01 RDW 15.2 % (11.6-16.5) 01/25/23 00:01 Plt Count 359 X10^3/uL (150.0-450.0) 01/25/23 00:01 MPV 6.7 fL (7.4-11.0) L 01/25/23 00:01 Neut % (Auto) 79.6 % (42.0-75.0) H 01/25/23 00:01 Lymph % (Auto) 12.3 % (21.0-51.0) L 01/25/23 00:01 [place] % (Auto) 5.9 % (0.0-13.0) 01/25/23 00:01 Eos % (Auto) 0.9 % (0.9-2.9) 01/25/23 00:01 Baso % (Auto) 1.3 % (0.2-1.0) H 01/25/23 00:01 Neut # (Auto) 13.3 x10^3/uL (2.2-4.8) H 01/25/23 00:01 Lymph # (Auto) 2.1 X10^3/uL (1.3-2.9) 01/25/23 00:01 [place] # (Auto) 1.0 x10^3/uL (0.3-0.8) H 01/25/23 00:01 Eos # (Auto) 0.2 x10^3/uL (0.0-0.2) 01/25/23 00:01 Baso # (Auto) 0.2 X10^3/uL (0.0-0.1) H 01/25/23 00:01 Absolute Nucleated RBC 0.0 /100WBC 01/25/23 00:01 Sodium 138 mmol/L (136-145) 01/25/23 00:01 Corrected Sodium TNP 01/25/23 00:01 Potassium 3.9 mmol/L (3.5-5.1) 01/25/23 00:01 Chloride 100 mmol/L (98-107) 01/25/23 00:01 Carbon Dioxide 25.3 mmol/L (21-32) 01/25/23 00:01 BUN 22 mg/dL (7-18) H 01/25/23 00:01 Creatinine 1.13 mg/dL (0.70-1.30) 01/25/23 00:01 Est GFR (MDRD) Af Amer > 60 (>60) 01/25/23 00:01 Est GFR (MDRD) Non-Af > 60 (>60) 01/25/23 00:01 Glucose 86 mg/dL (65-99) 01/25/23 00:01 Hemoglobin A1c 5.3 % 01/25/23 00:01 Calcium 8.7 mg/dL (8.5-10.1) 01/25/23 00:01 Corrected Calcium 9.5 mg/dL (8.5-10.1) 01/25/23 00:01 Iron 20 ug/dL (50-175) L 01/25/23 00:01 Transferrin 209 mg/dL (202-364) 01/25/23 00:01 Ferritin 303 ng/mL (26-388) 01/25/23 00:01 Total Bilirubin 0.10 mg/dL (0.2-1.0) L 01/25/23 00:01 AST 13 Units/L (15-37) L 01/25/23 00:01 ALT 12 Units/L (12-78) 01/25/23 00:01 Alkaline Phosphatase 70 Units/L (46-116) 01/25/23 00:01 Total Protein 7.5 g/dL (6.4-8.2) 01/25/23 00:01 Albumin 3.0 g/dL (3.4-5.0) L 01/25/23 00:01 Globulin 4.5 g/dL (2.5-4.5) 01/25/23 00:01 Albumin/Globulin Ratio 0.7 Ratio (1.1-2.1) L 01/25/23 00:01 Vitamin B12 194 pg/mL (193-986) 01/25/23 00:01 Folate 2.1 ng/mL (>8.6) L 01/25/23 00:01 Specimen Type Clean catch urine 01/24/23 23:40 Urine Color Dark yellow (YELLOW) 01/24/23 23:40 Urine Appearance Clear (CLEAR) 01/24/23 23:40 Urine pH 5.0 (5.0 - 8.0) 01/24/23 23:40 Ur Specific [place] 1.030 (1.000-1.030) 01/24/23 23:40 Urine Protein 2+ (NEGATIVE) 01/24/23 23:40 Urine Glucose (UA) Negative (NEGATIVE) 01/24/23 23:40 Urine Ketones 1+ (NEGATIVE) 01/24/23 23:40 Urine Blood 1+ (NEGATIVE) 01/24/23 23:40 Urine Nitrite Negative (NEGATIVE) 01/24/23 23:40 Urine Bilirubin Negative (NEGATIVE) 01/24/23 23:40 Urine Urobilinogen Normal (NORMAL) 01/24/23 23:40 Ur Leukocyte Esterase Negative (NEGATIVE) 01/24/23 23:40 Urine RBC 3-5 /HPF (0-3) A 01/24/23 23:40 Urine WBC 0-2 /HPF (0-5) 01/24/23 23:40 Ur Squamous Epith Cells Few /HPF (NEGATIVE) 01/24/23 23:40 Urine Bacteria Trace /HPF (NEGATIVE) 01/24/23 23:40 Hyaline Casts Few /LPF (NEGATIVE) 01/24/23 23:40 Urine Mucus Few /HPF (NEGATIVE) 01/24/23 23:40 Ur Culture Indicated? No/not indicated 01/24/23 23:40 Urine Opiates Screen Negative (NEG=<300) 01/24/23 23:40 Urine Methadone Screen Negative (NEG=<300) 01/24/23 23:40 Ur Barbiturates Screen Negative (NEG=<200) 01/24/23 23:40 Ur Phencyclidine Scrn Negative (NEG=<25) 01/24/23 23:40 Ur Amphetamines Screen Positive (NEG=<1000) 01/24/23 23:40 U Benzodiazepines Scrn Negative (NEG=<200) 01/24/23 23:40 Urine Cocaine Screen Negative (NEG=<300) 01/24/23 23:40 U Marijuana (THC) Screen Negative (NEG=<50) 01/24/23 23:40 Opioid Opioid Risk Tool Personal Hx of Substance Abuse: Illegal Drugs Age (Rashi box if 16-45): Yes History of Preadolescent Sexual Abuse: No Total: 1 Total Score Risk Category: Low Risk Copyright: Rodolfo VELAZCO predicting aberrant behaviors Discharge Plan Diagnosis Discharge Problem: Bacteremia, Cellulitis of left upper extremity, Substance abuse Discharge Plan Patient Disposition: 09 ADMITTED INPATIENT
[2023-01-24] MEDS ORDERED: TORADOL 30 MG VIAL IVP ONE (23:54)
[2023-01-24] MEDS ORDERED: VANCOMYCIN IV *PREMIX 1 G/200 ML BAG 1 G/200 ML PIGGYBACK IV ONE (23:57)
[2023-01-25 00:20] LABS: BASOPHILS # (AUTO) 0.2 X10^3/uL (0.0-0.1); BASOPHILS % (AUTO) 1.3 % (0.2-1.0); EOSINOPHILS # (AUTO) 0.2 x10^3/uL (0.0-0.2); EOSINOPHILS % (AUTO) 0.9 % (0.9-2.9); HEMOGLOBIN 11.6 g/dL (13.5-18.0); LYMPHOCYTES # (AUTO) 2.1 X10^3/uL (1.3-2.9); LYMPHOCYTES % (AUTO) 12.3 % (21.0-51.0); MEAN CORPUSCULAR HGB CONC 33.2 g/dL (33.0-35.0); MEAN CORPUSCULAR VOLUME 78.2 fL (80.0-100.0); MEAN PLATELET VOLUME 6.7 fL (7.4-11.0); MONOCYTES % (AUTO) 5.9 % (0.0-13.0); NEUTROPHILS # (AUTO) 13.3 x10^3/uL (2.2-4.8); NEUTROPHILS % (AUTO) 79.6 % (42.0-75.0); RED BLOOD COUNT 4.48 X10^6/uL (4.7-6.0); RED CELL DISTRIBUTION WIDTH 15.2 % (11.6-16.5); WHITE BLOOD COUNT 16.7 X10^3/uL (3.6-10.0)
[2023-01-25 00:41] LABS: BILIRUBIN,URINE NEGATIVE (NEGATIVE); BLOOD/HEMOGLOBIN,URINE 1+ (NEGATIVE); GLUCOSE, URINE NEGATIVE (NEGATIVE); KETONES,URINE 1+ (NEGATIVE); LEUKOCYTE ESTERASE ,URINE NEGATIVE (NEGATIVE); NITRITES,URINE NEGATIVE (NEGATIVE); PROTEIN,URINE 2+ (NEGATIVE); UROBILINOGEN,URINE NORMAL (NORMAL)
[2023-01-25 00:41] LABS: ALANINE AMINOTRANSFERASE 12 Units/L (12-78); ALKALINE PHOSPHATASE 70 Units/L (46-116); ASPARTATE AMINO TRANSFERASE 13 Units/L (15-37); BLOOD UREA NITROGEN 22 mg/dL (7-18); CALCIUM 8.7 mg/dL (8.5-10.1); CARBON DIOXIDE 25.3 mmol/L (21-32); CHLORIDE 100 mmol/L (98-107); COR CA(FOR HYPOALB) 9.5 mg/dL (8.5-10.1); CREATININE 1.13 mg/dL (0.70-1.30); SODIUM 138 mmol/L (136-145); TOTAL PROTEIN 7.5 g/dL (6.4-8.2); eGFR NON BLACK RACES > 60 (>60)
[2023-01-25 00:44] LABS: APPEARANCE,URINE CLEAR (CLEAR); COLOR,URINE DARK YELLOW (YELLOW)
[2023-01-25 00:53] LABS: BACTERIA,URINE TRACE /HPF (NEGATIVE); HYALINE CASTS, URINE FEW /LPF (NEGATIVE); SQUAMOUS EPITHELIAL CELL,UR FEW /HPF (NEGATIVE)
[2023-01-25] MEDS ORDERED: ZOFRAN TAB 4 MG PO PRN (02:39)
[2023-01-25 02:56] VITALS: BMI 26.2
[2023-01-25] MEDS: TORADOL 30 MG VIAL IVP PRN ×4 (03:05→21:18)
[2023-01-25] MEDS: XANAX PO PRN ×3 (03:06→17:56)
[2023-01-25] MEDS: ZOSYN VIAL 3.375 GRAMS 3.375 G in NS 100 ML IV 100 ML IV SCH ×3 (03:17→21:18)
[2023-01-25 05:30] LABS: BASOPHILS # (AUTO) 0.1 X10^3/uL (0.0-0.1); BASOPHILS % (AUTO) 0.9 % (0.2-1.0); EOSINOPHILS # (AUTO) 0.2 x10^3/uL (0.0-0.2); EOSINOPHILS % (AUTO) 1.4 % (0.9-2.9); HEMATOCRIT 31.2 % (42.0-54.0); HEMOGLOBIN 10.5 g/dL (13.5-18.0); LYMPHOCYTES % (AUTO) 12.6 % (21.0-51.0); MEAN CORPUSCULAR HEMOGLOBIN 26.2 pg (27.0-34.0); MEAN CORPUSCULAR HGB CONC 33.7 g/dL (33.0-35.0); MEAN CORPUSCULAR VOLUME 77.8 fL (80.0-100.0); MEAN PLATELET VOLUME 6.8 fL (7.4-11.0); MONOCYTES % (AUTO) 6.3 % (0.0-13.0); NEUTROPHILS # (AUTO) 12.6 x10^3/uL (2.2-4.8); NEUTROPHILS % (AUTO) 78.8 % (42.0-75.0)
[2023-01-25 05:45] LABS: ALANINE AMINOTRANSFERASE 10 Units/L (12-78); ALBUMIN 2.6 g/dL (3.4-5.0); ALKALINE PHOSPHATASE 63 Units/L (46-116); ASPARTATE AMINO TRANSFERASE 12 Units/L (15-37); BLOOD UREA NITROGEN 22 mg/dL (7-18); CALCIUM 8.6 mg/dL (8.5-10.1); CARBON DIOXIDE 20.4 mmol/L (21-32); CHLORIDE 103 mmol/L (98-107); COR CA(FOR HYPOALB) 9.7 mg/dL (8.5-10.1); SODIUM 137 mmol/L (136-145); TOTAL PROTEIN 6.6 g/dL (6.4-8.2); eGFR NON BLACK RACES > 60 (>60)
[2023-01-25] MEDS ORDERED: MICRO K EXTEN CAP 10 MEQ PO PRN (06:21)
[2023-01-25] MEDS ORDERED: KLOR-CON PO PRN (06:21)
[2023-01-25] MEDS ORDERED: POTASSIUM CHL 60 MEQ/NS 0.45% 500 ML IV PRN (06:21)
[2023-01-25] MEDS ORDERED: K-DUR TAB 20 MEQ PO PRN (06:21)
[2023-01-25] MEDS ORDERED: K-RIDER 10 MEQ/NS 100 ML 10 MEQ/100 ML BAG IV PRN (06:21)
[2023-01-25] MEDS ORDERED: POTASSIUM CHL 40 MEQ/NS 0.45% 500 ML IV PRN (06:21)
[2023-01-25] MEDS ORDERED: POTASSIUM CHLORIDE LIQ 20 MEQ UDC PO PRN (06:21)
[2023-01-25] MEDS: NORCO 10/325 TAB PO PRN ×4 (08:02→22:37)
[2023-01-25] MEDS ORDERED: VANCOMYCIN IV *PREMIX 1 G/200 ML BAG 1 G/200 ML PIGGYBACK IV SCH (09:00)
[2023-01-25] MEDS: VSL#3 PO SCH (09:03)
[2023-01-25] MEDS: VANCOMYCIN IV *PREMIX 1.5 G/300 ML BAG 1.5 G/300 ML PIGGYBACK IV SCH ×2 (09:25→20:25)
[2023-01-25] MEDS: MAGNESIUM SULFATE 1 GRAM/100 mL PREMIX 1 G/100 ML BAG IV PRN ×2 (12:00→14:00)
--- NOTE | 2023-01-25 13:56 | DR.CONSULT ---
CONSULT Consultation for Day of: Date: 01/25/23 Chief Complaint Chief Complaint: Patient with redness and swelling of left radial forearm and left antecubital fossa at site on illicit drug use by injection. He was seen in the ER at [place] 01/13 for phlebitis of these areas and left AMA without getting prescriptions for po antibiotics. Now areas left arm are worse. Allergies Allergies Allergy/AdvReac Type Severity Reaction Status Date / Time No Known Drug Allergies Allergy Verified 07/22/22 13:38 History of Present Illness History of Present Illness: See above Past Medical History Past Medical History: GERD and Headaches Additional Medical History: IV Drug Abuse - + Tox screen for amphetamines and marijuana Past Surgical History Surgical History: Ortho Surgery Family History Family Medical History: Diabetes Mellitus, Cancer, [place] and Hypertension Social History Does patient currently use any type of tobacco product: Yes Have you used tobacco products in the last 12 months: Yes Type of Tobacco Use: Cigarettes Alcohol Use: None Drug Use: Other Medications Home Medications: No Known Drug Allergies Allergy (Verified 07/22/22 13:38) Review of Systems Constitutional: See HPI Eyes: No Symptoms Reported ENT: No Symptoms Reported Respiratory: No Symptoms Reported Cardiovascular: No Symptoms Reported Gastrointestinal: No Symptoms Reported Genitourinary: No Symptoms Reported Musculoskeletal: No Symptoms Reported Skin: See HPI Neurological: No Symptoms Reported Physical Exam Vital Signs: Temperature 97.9 F Pulse Rate [Right] 84 Pulse Rate 118 Respiratory Rate 20 Blood Pressure [Left Arm] 123/71 Blood Pressure 128/67 O2 Sat by Pulse Oximetry 97 Oriented: Normal, Time, Person and Place Eyes: Normal Ear: Normal Nose: Normal Throat: Normal Respiratory: Clear Throughout Cardiovascular: Normal : Normal Auscultation: Bowel Sounds: Normal Palpation: Normal Tenderness: Normal Skin: Other (5cm diameter abscess to the left radial arm with another area 10x8 cm of fluctuance left antecubital fossa. Evidence of needle guerra both areas left arm as described above ) Musculoskeletal: Normal Psychiatric: Normal Mood Description: Calm Affect: Normal Speech Pattern: Clear Plan (1) Superficial thrombophlebitis of left upper extremity: Status: Acute (2) Current recreational drug use: Status: Acute (3) Cellulitis: Status: Acute Qualifiers: Laterality: left Site of cellulitis: extremity Site of cellulitis of extremity: upper extremity Qualified Code(s): L03.114 - Cellulitis of left upper limb (4) Amphetamine abuse: Status: Acute (5) Abscess of left forearm: Status: Acute (6) Hypokalemia: Status: Acute (7) Microcytic anemia: Status: Acute (8) Abscess of left arm: Status: Acute Plan: Continue IV antibiotics. Will plan incision and drainage both areas of the left arm.
[2023-01-25] MEDS: NS 1,000 ML IV 1,000 ML IV SCH (17:48)
[2023-01-25] MEDS: RESTORIL CAP 15 MG PO PRN (23:48)
[2023-01-26] MEDS: TORADOL 30 MG VIAL IVP PRN ×3 (02:46→23:40)
[2023-01-26] MEDS: ZOSYN VIAL 3.375 GRAMS 3.375 G in NS 100 ML IV 100 ML IV SCH ×3 (05:05→22:28)
[2023-01-26] MEDS: NS 1,000 ML IV 1,000 ML IV SCH ×2 (08:02→22:28)
[2023-01-26] MEDS: VSL#3 PO SCH (08:03)
--- NOTE | 2023-01-26 08:06 | DR.H&P ---
H&P History & Physical for Day of: H&P Date: 01/25/23 Chief Complaint Chief Complaint: Left posterior forearm swelling and left hand and left forearm pain. Allergies Allergies Allergy/AdvReac Type Severity Reaction Status Date / Time No Known Drug Allergies Allergy Verified 07/22/22 13:38 History of Present Illness History of Present Illness: This is a 32-year-old white male who presented to the emergency department last night with a swelling in the left posterior forearm that came up 2 nights before he reports. He had been seen earlier in January and was admitted for treatment of cellulitis of the left hand and forearm. He is a IV drug abuser and his urine drug screen showed he was positive for amphetamines on this admission and previous admission. He reports he is in a lot of pain and reports a low-grade fever as well. On his last hospitalization after 2 or 3 days he checked himself out AMA and was given a prescription for Bactrim DS and did not feel this. He was seen in the emergency department on January 22, 2023 and given an antibiotic by the ER doctor but apparently he is not taking that as well either. Previous blood culture from the previous hospital location showed that he grew out Streptococcus anginosus that is sensitive to cephalosporins and penicillins. Ultrasound was done of his hand and forearm last night that showed thrombophlebitis and no DVT was seen. We subsequently admitted him for IV antibiotic therapy with IV vancomycin and Zosyn and we put in for a surgical consult as well. Past Medical History Past Medical History: GERD and Headaches Additional Medical History: IV Drug Abuse - + Tox screen for amphetamines and marijuana Past Surgical History Surgical History: Ortho Surgery Family History Family Medical History: Diabetes Mellitus, Cancer, [place] and Hypertension Social History Does patient currently use any type of tobacco product: Yes Have you used tobacco products in the last 12 months: Yes Type of Tobacco Use: Cigarettes Alcohol Use: None Drug Use: Other Medications Home Medications: No Known Drug Allergies Allergy (Verified 07/22/22 13:38) Labs Result Diagrams: 01/25/23 04:55 01/25/23 12:59 Labs: Laboratory WBC 16.0 X10^3/uL (3.6-10.0) H 01/25/23 04:55 RBC 4.00 X10^6/uL (4.7-6.0) L 01/25/23 04:55 Hgb 10.5 g/dL (13.5-18.0) L 01/25/23 04:55 Hct 31.2 % (42.0-54.0) L 01/25/23 04:55 MCV 77.8 fL (80.0-100.0) L 01/25/23 04:55 MCH 26.2 pg (27.0-34.0) L 01/25/23 04:55 MCHC 33.7 g/dL (33.0-35.0) 01/25/23 04:55 RDW 15.0 % (11.6-16.5) 01/25/23 04:55 Plt Count 303 X10^3/uL (150.0-450.0) 01/25/23 04:55 MPV 6.8 fL (7.4-11.0) L 01/25/23 04:55 Neut % (Auto) 78.8 % (42.0-75.0) H 01/25/23 04:55 Lymph % (Auto) 12.6 % (21.0-51.0) L 01/25/23 04:55 [place] % (Auto) 6.3 % (0.0-13.0) 01/25/23 04:55 Eos % (Auto) 1.4 % (0.9-2.9) 01/25/23 04:55 Baso % (Auto) 0.9 % (0.2-1.0) 01/25/23 04:55 Neut # (Auto) 12.6 x10^3/uL (2.2-4.8) H 01/25/23 04:55 Lymph # (Auto) 2.0 X10^3/uL (1.3-2.9) 01/25/23 04:55 [place] # (Auto) 1.0 x10^3/uL (0.3-0.8) H 01/25/23 04:55 Eos # (Auto) 0.2 x10^3/uL (0.0-0.2) 01/25/23 04:55 Baso # (Auto) 0.1 X10^3/uL (0.0-0.1) 01/25/23 04:55 Absolute Nucleated RBC 0.0 /100WBC 01/25/23 04:55 Sodium 137 mmol/L (136-145) 01/25/23 04:55 Corrected Sodium TNP 01/25/23 04:55 Potassium 3.4 mmol/L (3.5-5.1) L 01/25/23 04:55 Chloride 103 mmol/L (98-107) 01/25/23 04:55 Carbon Dioxide 20.4 mmol/L (21-32) L 01/25/23 04:55 BUN 22 mg/dL (7-18) H 01/25/23 04:55 Creatinine 1.10 mg/dL (0.70-1.30) 01/25/23 04:55 Est GFR (MDRD) Af Amer > 60 (>60) 01/25/23 04:55 Est GFR (MDRD) Non-Af > 60 (>60) 01/25/23 04:55 Glucose 104 mg/dL (65-99) H 01/25/23 04:55 Hemoglobin A1c 5.3 % 01/25/23 00:01 Calcium 8.6 mg/dL (8.5-10.1) 01/25/23 04:55 Corrected Calcium 9.7 mg/dL (8.5-10.1) 01/25/23 04:55 Magnesium 1.8 mg/dL (2.0-2.9) L 01/25/23 04:55 Total Bilirubin 0.20 mg/dL (0.2-1.0) 01/25/23 04:55 AST 12 Units/L (15-37) L 01/25/23 04:55 ALT 10 Units/L (12-78) L 01/25/23 04:55 Alkaline Phosphatase 63 Units/L (46-116) 01/25/23 04:55 Total Protein 6.6 g/dL (6.4-8.2) 01/25/23 04:55 Albumin 2.6 g/dL (3.4-5.0) L 01/25/23 04:55 Globulin 4.0 g/dL (2.5-4.5) 01/25/23 04:55 Albumin/Globulin Ratio 0.7 Ratio (1.1-2.1) L 01/25/23 04:55 Specimen Type Clean catch urine 01/24/23 23:40 Urine Color Dark yellow (YELLOW) 01/24/23 23:40 Urine Appearance Clear (CLEAR) 01/24/23 23:40 Urine pH 5.0 (5.0 - 8.0) 01/24/23 23:40 Ur Specific [place] 1.030 (1.000-1.030) 01/24/23 23:40 Urine Protein 2+ (NEGATIVE) 01/24/23 23:40 Urine Glucose (UA) Negative (NEGATIVE) 01/24/23 23:40 Urine Ketones 1+ (NEGATIVE) 01/24/23 23:40 Urine Blood 1+ (NEGATIVE) 01/24/23 23:40 Urine Nitrite Negative (NEGATIVE) 01/24/23 23:40 Urine Bilirubin Negative (NEGATIVE) 01/24/23 23:40 Urine Urobilinogen Normal (NORMAL) 01/24/23 23:40 Ur Leukocyte Esterase Negative (NEGATIVE) 01/24/23 23:40 Urine RBC 3-5 /HPF (0-3) A 01/24/23 23:40 Urine WBC 0-2 /HPF (0-5) 01/24/23 23:40 Ur Squamous Epith Cells Few /HPF (NEGATIVE) 01/24/23 23:40 Urine Bacteria Trace /HPF (NEGATIVE) 01/24/23 23:40 Hyaline Casts Few /LPF (NEGATIVE) 01/24/23 23:40 Urine Mucus Few /HPF (NEGATIVE) 01/24/23 23:40 Ur Culture Indicated? No/not indicated 01/24/23 23:40 Urine Opiates Screen Negative (NEG=<300) 01/24/23 23:40 Urine Methadone Screen Negative (NEG=<300) 01/24/23 23:40 Ur Barbiturates Screen Negative (NEG=<200) 01/24/23 23:40 Ur Phencyclidine Scrn Negative (NEG=<25) 01/24/23 23:40 Ur Amphetamines Screen Positive (NEG=<1000) 01/24/23 23:40 U Benzodiazepines Scrn Negative (NEG=<200) 01/24/23 23:40 Urine Cocaine Screen Negative (NEG=<300) 01/24/23 23:40 U Marijuana (THC) Screen Negative (NEG=<50) 01/24/23 23:40 Review of Systems Constitutional: Fever, Chills and Malaise Eyes: No Symptoms Reported ENT: No Symptoms Reported Respiratory: No Symptoms Reported Cardiovascular: No Symptoms Reported Gastrointestinal: No Symptoms Reported Genitourinary: No Symptoms Reported Musculoskeletal: Arm Pain and Hand Pain Skin: Lesions and Wound Neurological: No Symptoms Reported Physical Exam Vital Signs: Temperature 97.9 F Pulse Rate [Right] 89 Pulse Rate 118 Respiratory Rate 18 Blood Pressure [Left Arm] 133/63 Blood Pressure 128/67 O2 Sat by Pulse Oximetry 92 Oriented: Normal, Time, Person and Place; negative Not Oriented Eyes: Normal Ear: Normal Nose: Normal Respiratory: Clear Throughout Cardiovascular: Normal Auscultation: Bowel Sounds: Normal Palpation: Normal Tenderness: Normal Skin: Red, Tender and Hot Musculoskeletal: Left, Forearm (Erythema and ping-pong sized lump) and Hand Psychiatric: Normal Affect: Normal Speech Pattern: Clear and Appropriate; negative Delayed or Slurred Assessment/Plan (1) Superficial thrombophlebitis of left upper extremity: Status: Acute Plan: Pain control and IV antibiotics. IV ketorolac. (2) Current recreational drug use: Status: Acute Plan: Counseled on amphetamine cessation. (3) Cellulitis: Qualifiers: Laterality: left Site of cellulitis: extremity Site of cellulitis of extremity: upper extremity Qualified Code(s): L03.114 - Cellulitis of left upper limb Status: Acute Plan: IV vancomycin and Zosyn. (4) Amphetamine abuse: Status: Acute Plan: Counseled on amphetamine cessation. (5) Abscess of left forearm: Status: Acute Plan: Consultation with general surgery. Pain control with IV ketorolac a nd p.o. hydrocodoneacetaminophen. (6) Hypokalemia: Status: Acute Plan: Potassium replacement protocol. (7) Microcytic anemia: Status: Acute Plan: Check anemia panel. Review H&P Reviewed: Yes Patient was examined?: Yes
[2023-01-26] MEDS ORDERED: ZOFRAN INJ 4 MG VIAL ONE (08:49)
[2023-01-26] MEDS ORDERED: VERSED ONE (08:49)
[2023-01-26] MEDS ORDERED: XYLOCAINE 2 % (PLAIN) ONE (08:49)
[2023-01-26] MEDS ORDERED: TORADOL 30 MG VIAL ONE ×2 (08:49→23:42)
[2023-01-26] MEDS ORDERED: KETAMINE HCL ONE (08:49)
[2023-01-26] MEDS ORDERED: FENTANYL VIAL INJ 100 mcg ONE ×2 (08:49→09:01)
[2023-01-26] MEDS ORDERED: PEPCID 20 MG VIAL ONE (08:49)
[2023-01-26] MEDS ORDERED: PRECEDEX INJ VIAL IVP ONE (08:49)
[2023-01-26] MEDS ORDERED: ROBINUL ONE (08:49)
[2023-01-26] MEDS ORDERED: OFIRMEV IV 1000 MG VIAL IV ONE (08:49)
[2023-01-26] MEDS ORDERED: DIPRIVAN VIAL ONE (08:49)
--- NOTE | 2023-01-26 09:19 | OR.IMMED ---
IMMEDIATE POST-OP NOTE Immediate Post-Op Note Pre-Op Diagnosis: Left arm abscesses x 2 Post-Op Diagnosis: same Procedure: I & D 5 cm abcesses left radial forearm and left antecubital fossa Description of Procedure: see operative summary Surgeon/Medical Economics Consultant: Arielle Findings: as above Estimated Blood Loss: < 10 cc Complications: none Discharge Progress Notes: Return to floor , continue IV antibiotics and daily dressing changes
[2023-01-26 09:57] LABS: BASOPHILS % (AUTO) 0.2 % (0.2-1.0); EOSINOPHILS # (AUTO) 0.1 x10^3/uL (0.0-0.2); EOSINOPHILS % (AUTO) 0.7 % (0.9-2.9); HEMATOCRIT 29.3 % (42.0-54.0); HEMOGLOBIN 9.7 g/dL (13.5-18.0); LYMPHOCYTES # (AUTO) 1.1 X10^3/uL (1.3-2.9); LYMPHOCYTES % (AUTO) 9.3 % (21.0-51.0); MEAN CORPUSCULAR HEMOGLOBIN 26.1 pg (27.0-34.0); MEAN CORPUSCULAR HGB CONC 33.3 g/dL (33.0-35.0); MEAN CORPUSCULAR VOLUME 78.6 fL (80.0-100.0); MEAN PLATELET VOLUME 6.4 fL (7.4-11.0); MONOCYTES # (AUTO) 0.8 x10^3/uL (0.3-0.8); MONOCYTES % (AUTO) 6.5 % (0.0-13.0); NEUTROPHILS # (AUTO) 9.7 x10^3/uL (2.2-4.8); NEUTROPHILS % (AUTO) 83.3 % (42.0-75.0); RED BLOOD COUNT 3.73 X10^6/uL (4.7-6.0); RED CELL DISTRIBUTION WIDTH 15.1 % (11.6-16.5); WHITE BLOOD COUNT 11.7 X10^3/uL (3.6-10.0)
[2023-01-26] MEDS: NORCO 10/325 TAB PO PRN ×4 (10:04→21:17)
[2023-01-26 10:18] LABS: ALANINE AMINOTRANSFERASE 8 Units/L (12-78); ALBUMIN 2.3 g/dL (3.4-5.0); ALKALINE PHOSPHATASE 51 Units/L (46-116); ASPARTATE AMINO TRANSFERASE 9 Units/L (15-37); BLOOD UREA NITROGEN 8 mg/dL (7-18); CALCIUM 8.2 mg/dL (8.5-10.1); CARBON DIOXIDE 24.8 mmol/L (21-32); CHLORIDE 104 mmol/L (98-107); COR CA(FOR HYPOALB) 9.6 mg/dL (8.5-10.1); CREATININE 0.69 mg/dL (0.70-1.30); SODIUM 136 mmol/L (136-145); TOTAL PROTEIN 6.1 g/dL (6.4-8.2); eGFR NON BLACK RACES > 60 (>60)
[2023-01-26] MEDS: XANAX PO PRN ×2 (10:18→17:37)
[2023-01-26 10:20] LABS: VANCOMYCIN,TROUGH 3.7 ug/mL (15-20)
[2023-01-26] MEDS: VANCOMYCIN IV *PREMIX 1.5 G/300 ML BAG 1.5 G/300 ML PIGGYBACK IV SCH ×3 (11:04→21:13)
--- NOTE | 2023-01-26 15:09 | PCM.PROG ---
Progress Note Progress Note for Day of Date of Exam: 01/26/23 Subjective Subjective: No acute problems this morning. Patient headed to the OR for I&D. Past Medical Family Social History Allergies: Allergies No Known Drug Allergies Allergy (Verified 07/22/22 13:38) Review of Systems ROS: No change since H&P Vital Signs and I&O's Vital Signs: Temperature 97.9 F Pulse Rate [Right] 95 Pulse Rate 118 Respiratory Rate 20 Blood Pressure [Left Arm] 139/70 Blood Pressure 128/67 O2 Sat by Pulse Oximetry 100 Intake and Output: Intake & Output 01/24/23 01/25/23 01/26/23 01/27/23 11:59 11:59 11:59 11:59 Intake Total 720 / 720 4960 / 4960 Output Total 450 / 450 4010 / 4010 Balance 270 / 270 950 / 950 Physical Exam Oriented: Normal, Time, Person and Place Eyes: Normal Ear: Normal Nose: Normal Throat: Normal Cardiovascular: Normal : Normal Auscultation: Bowel Sounds: Normal Tenderness: Normal Skin: Other (5cm diameter abscess to the left radial arm with another area 10x8 cm of fluctuance left antecubital fossa. Evidence of needle guerra both areas left arm as described above ) Musculoskeletal: Normal Psychiatric: Normal Mood Description: Calm Affect: Normal Speech Pattern: Clear and Appropriate Laboratory and Diagnostics Result Diagrams: 01/26/23 09:49 01/26/23 09:49 Labs: Laboratory WBC 11.7 X10^3/uL (3.6-10.0) H 01/26/23 09:49 RBC 3.73 X10^6/uL (4.7-6.0) L 01/26/23 09:49 Hgb 9.7 g/dL (13.5-18.0) L 01/26/23 09:49 Hct 29.3 % (42.0-54.0) L 01/26/23 09:49 MCV 78.6 fL (80.0-100.0) L 01/26/23 09:49 MCH 26.1 pg (27.0-34.0) L 01/26/23 09:49 MCHC 33.3 g/dL (33.0-35.0) 01/26/23 09:49 RDW 15.1 % (11.6-16.5) 01/26/23 09:49 Plt Count 256 X10^3/uL (150.0-450.0) 01/26/23 09:49 MPV 6.4 fL (7.4-11.0) L 01/26/23 09:49 Neut % (Auto) 83.3 % (42.0-75.0) H 01/26/23 09:49 Lymph % (Auto) 9.3 % (21.0-51.0) L 01/26/23 09:49 [place] % (Auto) 6.5 % (0.0-13.0) 01/26/23 09:49 Eos % (Auto) 0.7 % (0.9-2.9) L 01/26/23 09:49 Baso % (Auto) 0.2 % (0.2-1.0) 01/26/23 09:49 Neut # (Auto) 9.7 x10^3/uL (2.2-4.8) H 01/26/23 09:49 Lymph # (Auto) 1.1 X10^3/uL (1.3-2.9) L 01/26/23 09:49 [place] # (Auto) 0.8 x10^3/uL (0.3-0.8) 01/26/23 09:49 Eos # (Auto) 0.1 x10^3/uL (0.0-0.2) 01/26/23 09:49 Baso # (Auto) 0.0 X10^3/uL (0.0-0.1) 01/26/23 09:49 Absolute Nucleated RBC 0.1 /100WBC 01/26/23 09:49 Sodium 136 mmol/L (136-145) 01/26/23 09:49 Corrected Sodium TNP 01/26/23 09:49 Potassium 4.2 mmol/L (3.5-5.1) 01/26/23 09:49 Chloride 104 mmol/L (98-107) 01/26/23 09:49 Carbon Dioxide 24.8 mmol/L (21-32) 01/26/23 09:49 BUN 8 mg/dL (7-18) 01/26/23 09:49 Creatinine 0.69 mg/dL (0.70-1.30) L 01/26/23 09:49 Est GFR (MDRD) Af Amer > 60 (>60) 01/26/23 09:49 Est GFR (MDRD) Non-Af > 60 (>60) 01/26/23 09:49 Glucose 109 mg/dL (65-99) H 01/26/23 09:49 Hemoglobin A1c 5.3 % 01/25/23 00:01 Calcium 8.2 mg/dL (8.5-10.1) L 01/26/23 09:49 Corrected Calcium 9.6 mg/dL (8.5-10.1) 01/26/23 09:49 Magnesium 1.8 mg/dL (2.0-2.9) L 01/25/23 04:55 Iron Cancelled 01/25/23 12:59 Transferrin 209 mg/dL (202-364) 01/25/23 00:01 Ferritin 303 ng/mL (26-388) 01/25/23 00:01 Total Bilirubin 0.10 mg/dL (0.2-1.0) L 01/26/23 09:49 AST 9 Units/L (15-37) L 01/26/23 09:49 ALT 8 Units/L (12-78) L 01/26/23 09:49 Alkaline Phosphatase 51 Units/L (46-116) 01/26/23 09:49 Total Protein 6.1 g/dL (6.4-8.2) L 01/26/23 09:49 Albumin 2.3 g/dL (3.4-5.0) L 01/26/23 09:49 Globulin 3.8 g/dL (2.5-4.5) 01/26/23 09:49 Albumin/Globulin Ratio 0.6 Ratio (1.1-2.1) L 01/26/23 09:49 Vitamin B12 194 pg/mL (193-986) 01/25/23 00:01 Folate 2.1 ng/mL (>8.6) L 01/25/23 00:01 Specimen Type Clean catch urine 01/24/23 23:40 Urine Color Dark yellow (YELLOW) 01/24/23 23:40 Urine Appearance Clear (CLEAR) 01/24/23 23:40 Urine pH 5.0 (5.0 - 8.0) 01/24/23 23:40 Ur Specific [place] 1.030 (1.000-1.030) 01/24/23 23:40 Urine Protein 2+ (NEGATIVE) 01/24/23 23:40 Urine Glucose (UA) Negative (NEGATIVE) 01/24/23 23:40 Urine Ketones 1+ (NEGATIVE) 01/24/23 23:40 Urine Blood 1+ (NEGATIVE) 01/24/23 23:40 Urine Nitrite Negative (NEGATIVE) 01/24/23 23:40 Urine Bilirubin Negative (NEGATIVE) 01/24/23 23:40 Urine Urobilinogen Normal (NORMAL) 01/24/23 23:40 Ur Leukocyte Esterase Negative (NEGATIVE) 01/24/23 23:40 Urine RBC 3-5 /HPF (0-3) A 01/24/23 23:40 Urine WBC 0-2 /HPF (0-5) 01/24/23 23:40 Ur Squamous Epith Cells Few /HPF (NEGATIVE) 01/24/23 23:40 Urine Bacteria Trace /HPF (NEGATIVE) 01/24/23 23:40 Hyaline Casts Few /LPF (NEGATIVE) 01/24/23 23:40 Urine Mucus Few /HPF (NEGATIVE) 01/24/23 23:40 Ur Culture Indicated? No/not indicated 01/24/23 23:40 Vancomycin Trough 3.7 ug/mL (15-20) L 01/26/23 09:49 Urine Opiates Screen Negative (NEG=<300) 01/24/23 23:40 Urine Methadone Screen Negative (NEG=<300) 01/24/23 23:40 Ur Barbiturates Screen Negative (NEG=<200) 01/24/23 23:40 Ur Phencyclidine Scrn Negative (NEG=<25) 01/24/23 23:40 Ur Amphetamines Screen Positive (NEG=<1000) 01/24/23 23:40 U Benzodiazepines Scrn Negative (NEG=<200) 01/24/23 23:40 Urine Cocaine Screen Negative (NEG=<300) 01/24/23 23:40 U Marijuana (THC) Screen Negative (NEG=<50) 01/24/23 23:40 Plan (1) Superficial thrombophlebitis of left upper extremity: Status: Acute Plan: Pain control and IV antibiotics. IV ketorolac. (2) Current recreational drug use: Status: Acute Plan: Counseled on amphetamine cessation. (3) Cellulitis: Status: Acute Qualifiers: Laterality: left Site of cellulitis: extremity Site of cellulitis of extremity: upper extremity Qualified Code(s): L03.114 - Cellulitis of left upper limb Plan: IV vancomycin and Zosyn. (4) Amphetamine abuse: Status: Acute Plan: Counseled on amphetamine cessation. (5) Abscess of left forearm: Status: Acute Plan: Consultation with general surgery. Pain control with IV ketorolac and p.o. hydrocodoneacetaminophen. I&D this morning per general surgery. (6) Hypokalemia: Status: Acute Plan: Potassium replacement protocol. (7) Microcytic anemia: Status: Acute Plan: Check anemia panel.
--- NOTE | 2023-01-26 16:31 | DR.OPNOTE ---
OP NOTE Pre-Op Diagnosis: IV drug use with abcesses to left radial forearm and left antecubital fossa Post-Op Diagnosis: same Procedure Date Date Of Procedure: 01/26/23 Procedure: PROCEDURE: Incise and drain abscesses of the left radial forearm and the left antecubital fossa NARRATIVE: The patient was taken to the operative suite and placed in the supine position. He was given intravenous sedation and the entire left arm prepped and draped in sterile fashion. Time out for the procedure obtained . Both planned incisions were infiltrated with 0.5% Marcaine . Vertical incision was made along the radial abscess of the the distal right forearm and gross pus evacuated evacuated. Wound irrigated and hemostasis obtained with electrocautery. The antecubital fossa area of concern was opened with a#15 knife blade and pus evacuated. There appeared to be no other areas of undrained pus. There is significant cellulitis of the entire left forearm. Antecubital fossa wound also irrigated with saline and hemostasis obtained with electrocautery Both wounds packed with 4x4s, Kerlix wrap and Teodoro Wrap to the left forearm. The patient was taken back to his room in good condition. Type of Anesthesia: Local (0,5% Marcaine ) Anesthesia Comment: plus MAC Findings: 5cm diameter abscess to the right radial forearm and 4 cm diameter abscess left medial antecubital fossa. Specimen/Pathology: cultures of wound Type of Fluids Used:: Lactated Ringers EBL: minimal Cultures: yes, see above Complications:: none Needle/Sponge Count:: rrect Disposition/Condition: Pt. tolerated procedure without difficulty. Taken back to his room in stable condition.
[2023-01-26] MEDS: RESTORIL CAP 15 MG PO PRN (21:12)
[2023-01-27 00:04] VITALS: BP 137/77
[2023-01-27] MEDS ORDERED: PHARMACY COMMENT IV NR (05:30)
--- NOTE | 2023-01-29 18:07 | DR.SSS ---
Short Stay Summary - Admission Date Date of Admission: 01/28/23 - Discharge Date Discharge Date: 01/28/23 - Admission Diagnoses Admission Diagnoses: LEFT FOREARM CELLULITIS AND ABSCESS - Discharge Diagnoses Discharge Diagnoses: SAME ADMISSION - Chief Complaint Chief Complaint: pain, redness and wound to left forearm - History of Present Illness History of Present Illness: This is a 32-year-old white male who presented to the emergency department last night with a swelling in the left posterior forearm.He had been seen earlier in January and was admitted for treatment of cellulitis of the left hand and forearm. He is a IV drug abuser and his urine drug screen showed he was positive for amphetamines on this admission and previous admission. He reports he is in a lot of pain and reports a low-grade fever as well. On his last hospitalization after 2 or 3 days he checked himself out AMA and was given a prescription for Bactrim DS and did not feel this. He was seen in the emergency department on January 22, 2023 and given an antibiotic by the ER doctor but apparently he is not taking that as well either. Previous blood culture from the previous hospital location showed that he grew out Streptococcus anginosus that is sensitive to cephalosporins and penicillins. Ultrasound was done of his hand and forearm last night that showed thrombophlebitis and no DVT was seen. Pt had I&D per Dr Guzmán on his previous visit but signed out AMA. - Past Medical History Past Medical History: GERD, Headaches Additional Medical History: IV Drug Abuse - + Tox screen for amphetamines - Past Surgical History Surgical History: Ortho Surgery - Medications Home Medications: No Known Drug Allergies Allergy (Verified 07/22/22 13:38) - Family History Family Medical History: Diabetes Mellitus, Cancer, [place], Hypertension - Social History Does patient currently use any type of tobacco product: Yes Have you used tobacco products in the last 12 months: Yes Type of Tobacco Use: Cigarettes Alcohol Use: None Drug Use: Other - Review of Systems Constitutional: No Symptoms Reported Eyes: No Symptoms Reported ENT: No Symptoms Reported Respiratory: No Symptoms Reported Cardiovascular: No Symptoms Reported Gastrointestinal: No Symptoms Reported Genitourinary: No Symptoms Reported Musculoskeletal: Arm Pain Skin: Wound Neurological: No Symptoms Reported - Physical Exam Most Recent Vital Signs: Last Vital Signs Temp 97.9 F 01/27/23 00:00 Pulse 95 H 01/27/23 00:00 Resp 18 01/27/23 00:00 BP 137/77 01/27/23 00:00 Pulse Ox 100 01/27/23 00:00 O2 Del Method Room Air 01/27/23 00:00 O2 Flow Rate 2 01/26/23 11:30 Oriented: Normal Eyes: Normal Ear: Normal Nose: Normal Throat: Normal Respiratory: Clear Throughout Cardiovascular: Normal : Normal Auscultation: Bowel Sounds: Normal Palpation: Normal Tenderness: Normal Skin: Red, Tender, Wound Musculoskeletal: Left, Arm, Tender Psychiatric: Normal Affect: Anxious Speech Pattern: Clear, Appropriate - Labs Labs: Laboratory Last Values WBC 11.7 X10^3/uL (3.6-10.0) H 01/26/23 09:49 RBC 3.73 X10^6/uL (4.7-6.0) L 01/26/23 09:49 Hgb 9.7 g/dL (13.5-18.0) L 01/26/23 09:49 Hct 29.3 % (42.0-54.0) L 01/26/23 09:49 MCV 78.6 fL (80.0-100.0) L 01/26/23 09:49 MCH 26.1 pg (27.0-34.0) L 01/26/23 09:49 MCHC 33.3 g/dL (33.0-35.0) 01/26/23 09:49 RDW 15.1 % (11.6-16.5) 01/26/23 09:49 Plt Count 256 X10^3/uL (150.0-450.0) 01/26/23 09:49 MPV 6.4 fL (7.4-11.0) L 01/26/23 09:49 Neut % (Auto) 83.3 % (42.0-75.0) H 01/26/23 09:49 Lymph % (Auto) 9.3 % (21.0-51.0) L 01/26/23 09:49 [place] % (Auto) 6.5 % (0.0-13.0) 01/26/23 09:49 Eos % (Auto) 0.7 % (0.9-2.9) L 01/26/23 09:49 Baso % (Auto) 0.2 % (0.2-1.0) 01/26/23 09:49 Neut # (Auto) 9.7 x10^3/uL (2.2-4.8) H 01/26/23 09:49 Lymph # (Auto) 1.1 X10^3/uL (1.3-2.9) L 01/26/23 09:49 [place] # (Auto) 0.8 x10^3/uL (0.3-0.8) 01/26/23 09:49 Eos # (Auto) 0.1 x10^3/uL (0.0-0.2) 01/26/23 09:49 Baso # (Auto) 0.0 X10^3/uL (0.0-0.1) 01/26/23 09:49 Absolute Nucleated RBC 0.1 /100WBC 01/26/23 09:49 Sodium 136 mmol/L (136-145) 01/26/23 09:49 Corrected Sodium TNP 01/26/23 09:49 Potassium 4.2 mmol/L (3.5-5.1) 01/26/23 09:49 Chloride 104 mmol/L (98-107) 01/26/23 09:49 Carbon Dioxide 24.8 mmol/L (21-32) 01/26/23 09:49 BUN 8 mg/dL (7-18) 01/26/23 09:49 Creatinine 0.69 mg/dL (0.70-1.30) L 01/26/23 09:49 Est GFR (MDRD) Af Amer > 60 (>60) 01/26/23 09:49 Est GFR (MDRD) Non-Af > 60 (>60) 01/26/23 09:49 Glucose 109 mg/dL (65-99) H 01/26/23 09:49 Hemoglobin A1c 5.3 % 01/25/23 00:01 Calcium 8.2 mg/dL (8.5-10.1) L 01/26/23 09:49 Corrected Calcium 9.6 mg/dL (8.5-10.1) 01/26/23 09:49 Magnesium 1.8 mg/dL (2.0-2.9) L 01/25/23 04:55 Iron Cancelled 01/25/23 12:59 Transferrin 209 mg/dL (202-364) 01/25/23 00:01 Ferritin 303 ng/mL (26-388) 01/25/23 00:01 Total Bilirubin 0.10 mg/dL (0.2-1.0) L 01/26/23 09:49 AST 9 Units/L (15-37) L 01/26/23 09:49 ALT 8 Units/L (12-78) L 01/26/23 09:49 Alkaline Phosphatase 51 Units/L (46-116) 01/26/23 09:49 Total Protein 6.1 g/dL (6.4-8.2) L 01/26/23 09:49 Albumin 2.3 g/dL (3.4-5.0) L 01/26/23 09:49 Globulin 3.8 g/dL (2.5-4.5) 01/26/23 09:49 Albumin/Globulin Ratio 0.6 Ratio (1.1-2.1) L 01/26/23 09:49 Vitamin B12 194 pg/mL (193-986) 01/25/23 00:01 Folate 2.1 ng/mL (>8.6) L 01/25/23 00:01 Specimen Type Clean catch urine 01/24/23 23:40 Urine Color Dark yellow (YELLOW) 01/24/23 23:40 Urine Appearance Clear (CLEAR) 01/24/23 23:40 Urine pH 5.0 (5.0 - 8.0) 01/24/23 23:40 Ur Specific [place] 1.030 (1.000-1.030) 01/24/23 23:40 Urine Protein 2+ (NEGATIVE) 01/24/23 23:40 Urine Glucose (UA) Negative (NEGATIVE) 01/24/23 23:40 Urine Ketones 1+ (NEGATIVE) 01/24/23 23:40 Urine Blood 1+ (NEGATIVE) 01/24/23 23:40 Urine Nitrite Negative (NEGATIVE) 01/24/23 23:40 Urine Bilirubin Negative (NEGATIVE) 01/24/23 23:40 Urine Urobilinogen Normal (NORMAL) 01/24/23 23:40 Ur Leukocyte Esterase Negative (NEGATIVE) 01/24/23 23:40 Urine RBC 3-5 /HPF (0-3) A 01/24/23 23:40 Urine WBC 0-2 /HPF (0-5) 01/24/23 23:40 Ur Squamous Epith Cells Few /HPF (NEGATIVE) 01/24/23 23:40 Urine Bacteria Trace /HPF (NEGATIVE) 01/24/23 23:40 Hyaline Casts Few /LPF (NEGATIVE) 01/24/23 23:40 Urine Mucus Few /HPF (NEGATIVE) 01/24/23 23:40 Ur Culture Indicated? No/not indicated 01/24/23 23:40 Vancomycin Trough 3.7 ug/mL (15-20) L 01/26/23 09:49 Urine Opiates Screen Negative (NEG=<300) 01/24/23 23:40 Urine Methadone Screen Negative (NEG=<300) 01/24/23 23:40 Ur Barbiturates Screen Negative (NEG=<200) 01/24/23 23:40 Ur Phencyclidine Scrn Negative (NEG=<25) 01/24/23 23:40 Ur Amphetamines Screen Positive (NEG=<1000) 01/24/23 23:40 U Benzodiazepines Scrn Negative (NEG=<200) 01/24/23 23:40 Urine Cocaine Screen Negative (NEG=<300) 01/24/23 23:40 U Marijuana (THC) Screen Negative (NEG=<50) 01/24/23 23:40 - Assessment/Plan 1: left forearm cellulitis: pt admitted for IV atbx treatment and surgical consult. pt refused treatment and signed out AMA. - Discharge Medications Discharge Medications: Prescriptions: - Allergies Allergies/Adverse Reactions: Allergies Allergy/AdvReac Type Severity Reaction Status Date / Time No Known Drug Allergies Allergy Verified 07/22/22 13:38
== END 2023-01-27 00:10 | disposition left against medical advice (07) | DRG 603 ==
LOC: ER 22:58 → MED/SURG 01-25 01:57
PROVIDERS: ADMIT Family Medicine; ATTEND Family Medicine
DX: Z91.89 Other specified personal risk factors, not elsewhere classified; M79.89 Other specified soft tissue disorders; M25.522 Pain in left elbow; D50.8 Other iron deficiency anemias; F15.10 Other stimulant abuse, uncomplicated; F19.10 Other psychoactive substance abuse, uncomplicated; Z53.29 Procedure and treatment not carried out because of patient's decision for other reasons; M79.632 Pain in left forearm; I80.8 Phlebitis and thrombophlebitis of other sites; E87.6 Hypokalemia; L02.414 Cutaneous abscess of left upper limb

== ENCOUNTER 2023-01-28 14:41 | Observation (INO) ==
[2023-01-28 14:51] VITALS: BMI 29.3
--- NOTE | 2023-01-28 15:05 | DR.GENAD ---
HPI Time Seen Time Seen by Provider: 01/28/23 15:05 PCP Primary Care Physician: none Complaint/Symptoms Chief Complaint:: pt states he had surgery on his left arm via dr cruz pt states he signed his self out ama instead of staying put states his arm is swelling and it hurts really bad. Self Treatment fo Chief Complaint: sulfameth/trimethoprim COVID-19 Coronavirus risk:travel/contact w/high risk person: No Has patient experienced Coronavirus symptoms: No Source History Provided: Patient Mode of Arrival Mode of Arrival: Ambulatory Timing Onset of Chief Complaint: 01/26/23 PMH PMH Past Medical History: Yes Past Medical History: GERD and Headaches Past Medical History Comment: drug use Past Surgical History: Yes Surgical History: Ortho Surgery Family History History of Family Medical Conditions: Yes Family Medical History: Diabetes Mellitus, Cancer, CO and Hypertension Social History Does patient currently use any type of tobacco product: Yes Have you used tobacco products in the last 12 months: Yes Type of Tobacco Use: Cigarettes Does any household member use tobacco: Yes Alcohol Use: None Do you use any recreational Drugs:: No Lives With: Alone Lives Where: Home Travel Risk Coronavirus risk:travel/contact w/high risk person: No Has patient experienced Coronavirus symptoms: No Infectious screening In the last 2 months have you had wt loss of >10#?: NO Have you had fever, night sweats or hemotysis?: No Have you traveled outside the country in the last 6 months?: No Isolation: Standard ROS Review of Systems Constitutional: No Symptoms Reported Eyes: No Symptoms Reported ENTM: No Symptoms Reported Respiratoy: No Symptoms Reported Cardiovascular: No Symptoms Reported Gastrointestinal/Abdominal: No Symptoms Reported Genitourinary: No Symptoms Reported Neurological: No Symptoms Reported Musculoskeletal: See HPI, Joint Pain, Joint Swelling and Muscle Pain Integumentary: No Symptoms Reported Hematologic/Lymphatic: No Symptoms Reported Endocrine: No Symptoms Reported Psychiatric: No Symptoms Reported All Other Systems: Reviewed and Negative PE Vital Signs Vitals: Temperature 98.5 F Pulse Rate 102 Respiratory Rate 20 Blood Pressure [Right Arm] 137/77 Blood Pressure 141/68 O2 Sat by Pulse Oximetry 99 General Limitations: No Limitations General Appearance: Alert and In No Apparent Distress Head Head Exam: Normal Inspection Eyes Eye exam: Normal Appearance ENT ENT Exam: Normal Exam External Ear Exam: Normal External Inspection TM/Canal Exam: Bilateral: Normal Nose Exam: Normal Nose Exam Mouth Exam: Normal Inspection Throat Exam: Normal Inspection Neck Neck Exam: Normal Inspection Chest Chest Inspection: Normal Inspection Respiratory Respiratory Exam: Normal Lung Sounds Bilat Respiratory Exam: Bilateral: Clear to Auscultation Cardiovascular Cardiovascular Exam: Regular Rate and Normal Rhythm Abdominal Exam Abdominal Exam: Normal Inspection, Normal Bowel Sounds and Soft Extremities Extremities Exam: Full ROM, Tenderness, Edema and Joint Swelling Back Back Exam: Normal Inspection Neurologic Neurological Exam: Alert and Oriented X3 Psychiatric Psychiatric Exam: Normal Affect and Normal Mood Skin Skin Exam: Warm, Dry, Intact and Normal Color COURSE Reevaluation 1st: Improved Consultation Consultation Comments: Admit per Dr. Lamas Education/Counseling Education/Counseling: Patient Educated On: Treatment and Diagnosis ROR Labs Reviewed Laboratory Results Reviewed?: Yes Result Diagrams: 01/28/23 15:20 01/28/23 15:20 Laboratory: WBC 6.7 X10^3/uL (3.6-10.0) 01/28/23 15:20 RBC 4.02 X10^6/uL (4.7-6.0) L 01/28/23 15:20 Hgb 10.5 g/dL (13.5-18.0) L 01/28/23 15:20 Hct 31.4 % (42.0-54.0) L 01/28/23 15:20 MCV 78.2 fL (80.0-100.0) L 01/28/23 15:20 MCH 26.2 pg (27.0-34.0) L 01/28/23 15:20 MCHC 33.5 g/dL (33.0-35.0) 01/28/23 15:20 RDW 15.0 % (11.6-16.5) 01/28/23 15:20 Plt Count 331 X10^3/uL (150.0-450.0) 01/28/23 15:20 MPV 6.2 fL (7.4-11.0) L 01/28/23 15:20 Neut % (Auto) 72.7 % (42.0-75.0) 01/28/23 15:20 Lymph % (Auto) 18.5 % (21.0-51.0) L 01/28/23 15:20 [place] % (Auto) 5.9 % (0.0-13.0) 01/28/23 15:20 Eos % (Auto) 2.2 % (0.9-2.9) 01/28/23 15:20 Baso % (Auto) 0.7 % (0.2-1.0) 01/28/23 15:20 Neut # (Auto) 4.9 x10^3/uL (2.2-4.8) H 01/28/23 15:20 Lymph # (Auto) 1.2 X10^3/uL (1.3-2.9) L 01/28/23 15:20 [place] # (Auto) 0.4 x10^3/uL (0.3-0.8) 01/28/23 15:20 Eos # (Auto) 0.1 x10^3/uL (0.0-0.2) 01/28/23 15:20 Baso # (Auto) 0.0 X10^3/uL (0.0-0.1) 01/28/23 15:20 Absolute Nucleated RBC 0.0 /100WBC 01/28/23 15:20 Sodium 138 mmol/L (136-145) 01/28/23 15:20 Corrected Sodium TNP 01/28/23 15:20 Potassium 3.9 mmol/L (3.5-5.1) 01/28/23 15:20 Chloride 102 mmol/L (98-107) 01/28/23 15:20 Carbon Dioxide 30.4 mmol/L (21-32) 01/28/23 15:20 BUN 6 mg/dL (7-18) L 01/28/23 15:20 Creatinine 0.68 mg/dL (0.70-1.30) L 01/28/23 15:20 Est GFR (MDRD) Af Amer > 60 (>60) 01/28/23 15:20 Est GFR (MDRD) Non-Af > 60 (>60) 01/28/23 15:20 Glucose 87 mg/dL (65-99) 01/28/23 15:20 Calcium 9.0 mg/dL (8.5-10.1) 01/28/23 15:20 Corrected Calcium 10.0 mg/dL (8.5-10.1) 01/28/23 15:20 Total Bilirubin 0.20 mg/dL (0.2-1.0) 01/28/23 15:20 AST 13 Units/L (15-37) L 01/28/23 15:20 ALT 14 Units/L (12-78) 01/28/23 15:20 Alkaline Phosphatase 48 Units/L (46-116) 01/28/23 15:20 Total Protein 6.9 g/dL (6.4-8.2) 01/28/23 15:20 Albumin 2.7 g/dL (3.4-5.0) L 01/28/23 15:20 Globulin 4.2 g/dL (2.5-4.5) 01/28/23 15:20 Albumin/Globulin Ratio 0.6 Ratio (1.1-2.1) L 01/28/23 15:20 Urine Opiates Screen Negative (NEG=<300) 01/28/23 16:37 Urine Methadone Screen Negative (NEG=<300) 01/28/23 16:37 Ur Barbiturates Screen Negative (NEG=<200) 01/28/23 16:37 Ur Phencyclidine Scrn Negative (NEG=<25) 01/28/23 16:37 Ur Amphetamines Screen Positive (NEG=<1000) 01/28/23 16:37 U Benzodiazepines Scrn Negative (NEG=<200) 01/28/23 16:37 Urine Cocaine Screen Negative (NEG=<300) 01/28/23 16:37 U Marijuana (THC) Screen Negative (NEG=<50) 01/28/23 16:37 XRAY XRAY Interpreted by: Radiologist Opioid Opioid Risk Tool Personal Hx of Substance Abuse: Illegal Drugs Age (Rashi box if 16-45): No History of Preadolescent Sexual Abuse: No Total: 0 Total Score Risk Category: Low Risk Copyright: Rodolfo VELAZCO predicting aberrant behaviors Discharge Plan Diagnosis Discharge Problem: Superficial thrombophlebitis of left upper extremity Discharge Plan Patient Disposition: 09 ADMITTED INPATIENT Condition: Stable Discharge Date/Time: 01/28/23 17:08 Interventions Interventions: Pain Assessment-ED ONLY Last Done: 01/28/23 16:43 Discharge Instructions - ED ONLY Last Done: 01/28/23 16:43 Vital Signs-ED Documentation Only Last Done: 01/28/23 16:43
[2023-01-28 15:30] LABS: BASOPHILS % (AUTO) 0.7 % (0.2-1.0); EOSINOPHILS # (AUTO) 0.1 x10^3/uL (0.0-0.2); EOSINOPHILS % (AUTO) 2.2 % (0.9-2.9); HEMATOCRIT 31.4 % (42.0-54.0); HEMOGLOBIN 10.5 g/dL (13.5-18.0); LYMPHOCYTES # (AUTO) 1.2 X10^3/uL (1.3-2.9); LYMPHOCYTES % (AUTO) 18.5 % (21.0-51.0); MEAN CORPUSCULAR HEMOGLOBIN 26.2 pg (27.0-34.0); MEAN CORPUSCULAR HGB CONC 33.5 g/dL (33.0-35.0); MEAN CORPUSCULAR VOLUME 78.2 fL (80.0-100.0); MEAN PLATELET VOLUME 6.2 fL (7.4-11.0); MONOCYTES # (AUTO) 0.4 x10^3/uL (0.3-0.8); MONOCYTES % (AUTO) 5.9 % (0.0-13.0); NEUTROPHILS # (AUTO) 4.9 x10^3/uL (2.2-4.8); NEUTROPHILS % (AUTO) 72.7 % (42.0-75.0); RED BLOOD COUNT 4.02 X10^6/uL (4.7-6.0); WHITE BLOOD COUNT 6.7 X10^3/uL (3.6-10.0)
[2023-01-28 15:42] LABS: ALANINE AMINOTRANSFERASE 14 Units/L (12-78); ALBUMIN 2.7 g/dL (3.4-5.0); ALKALINE PHOSPHATASE 48 Units/L (46-116); ASPARTATE AMINO TRANSFERASE 13 Units/L (15-37); BLOOD UREA NITROGEN 6 mg/dL (7-18); CARBON DIOXIDE 30.4 mmol/L (21-32); CHLORIDE 102 mmol/L (98-107); CREATININE 0.68 mg/dL (0.70-1.30); SODIUM 138 mmol/L (136-145); TOTAL PROTEIN 6.9 g/dL (6.4-8.2); eGFR NON BLACK RACES > 60 (>60)
[2023-01-28] MEDS ORDERED: TORADOL 30 MG VIAL IM ONE (15:44)
[2023-01-28] MEDS ORDERED: TORADOL 30 MG VIAL ONE (15:46)
[2023-01-28] MEDS ORDERED: NS 1,000 ML IV 1,000 ML IV SCH (17:02)
[2023-01-28] MEDS ORDERED: BENADRYL INJ 50 MG VIAL IVP PRN (17:41)
[2023-01-28] MEDS ORDERED: OFIRMEV IV 1000 MG VIAL 1,000 MG/100 ML VIAL IV PRN (17:42)
[2023-01-28] MEDS ORDERED: SEROquel TAB 25 mg PO ONE (17:43)
[2023-01-28] MEDS: CLEOCIN 600 MG IV PREMIX 600 MG/50 ML BAG IV SCH ×2 (17:59→18:27)
--- NOTE | 2023-01-28 18:43 | VAS ---
EXAM: LEFT UPPER EXTREMITY VENOUS DOPPLER ULTRASOUNDHISTORY: Pain. Swelling.TECHNIQUE: The upper extremity veins were interrogated with a high-frequency linear transducer, employing grayscale imaging, duplex Doppler and color flow Doppler imaging.COMPARISON: Left lower extremity venous Doppler ultrasound dated January 22, 2023.FINDINGS:There is stable appearance of intravascular filling defect, expansile change, absent compressibility, and absent color-flow Doppler signal involving the left basilic vein in keeping with acute or subacute occlusive SVT.There is no loss of compressibility, intraluminal color flow Doppler signal, or loss of duplex Doppler signal seen within the internal jugular vein, subclavian vein, axillary vein, brachial vein, radial vein, ulnar vein, and cephalic vein.No abnormal fluid collection is seen. No evidence for gross axillary lymphadenopathy is seen.Note: DVT could be missed early in the disease when clot burden is minimal. For patients with moderate and high pretest probability of DVT and negative ultrasound, the [employer] clinical guidelines recommend testing with a d-dimer assay or repeat ultrasound in 5-7 days. If symptoms worsen, the Society of radiologists in ultrasound recommend repeating ultrasound even earlier.IMPRESSION:1. Stable acute/subacute occlusive basilic vein SVT; cannot rule out superficial thrombophlebitis.2. No evidence for DVT.3. No abnormal fluid collection seen.Electronically signed by: Rosario Epperson (Jan 28, 2023 17:22:00)
[2023-01-28] MEDS ORDERED: PHARMACY CONSULT - VANCOMYCIN XX SCH (19:00)
[2023-01-28] MEDS ORDERED: VANCOMYCIN IV *PREMIX 1.25 G/250 ML BAG 1.25 G/250 ML PIGGYBACK IV SCH (20:00)
[2023-01-28 22:13] VITALS: BP 122/72
[2023-01-29] MEDS ORDERED: PHARMACY COMMENT IV SCH (19:30)
== END 2023-01-28 21:50 | disposition left against medical advice (07) ==
LOC: ER 14:41 → MED/SURG 14:41
PROVIDERS: ADMIT Internal Medicine; ATTEND Internal Medicine

== ENCOUNTER 2023-04-13 22:39 | Observation (INO) ==
[2023-04-13 23:38] LABS: BASOPHILS # (AUTO) 0.3 X10^3/uL (0.0-0.1); BASOPHILS % (AUTO) 2.9 % (0.2-1.0); EOSINOPHILS # (AUTO) 0.3 x10^3/uL (0.0-0.2); EOSINOPHILS % (AUTO) 2.6 % (0.9-2.9); HEMATOCRIT 35.4 % (42.0-54.0); LYMPHOCYTES # (AUTO) 1.8 X10^3/uL (1.3-2.9); LYMPHOCYTES % (AUTO) 18.6 % (21.0-51.0); MEAN CORPUSCULAR HGB CONC 33.8 g/dL (33.0-35.0); MEAN CORPUSCULAR VOLUME 79.9 fL (80.0-100.0); MEAN PLATELET VOLUME 6.8 fL (7.4-11.0); MONOCYTES # (AUTO) 0.5 x10^3/uL (0.3-0.8); MONOCYTES % (AUTO) 5.2 % (0.0-13.0); NEUTROPHILS # (AUTO) 6.8 x10^3/uL (2.2-4.8); NEUTROPHILS % (AUTO) 70.7 % (42.0-75.0); PLATELET COUNT 249 X10^3/uL (150.0-450.0); RED BLOOD COUNT 4.43 X10^6/uL (4.7-6.0); RED CELL DISTRIBUTION WIDTH 14.9 % (11.6-16.5); WHITE BLOOD COUNT 9.7 X10^3/uL (3.6-10.0)
[2023-04-13 23:53] LABS: ALANINE AMINOTRANSFERASE 41 Units/L (12-78); ALBUMIN 3.3 g/dL (3.4-5.0); ALKALINE PHOSPHATASE 64 Units/L (46-116); ASPARTATE AMINO TRANSFERASE 15 Units/L (15-37); BLOOD UREA NITROGEN 13 mg/dL (7-18); CALCIUM 7.9 mg/dL (8.5-10.1); CARBON DIOXIDE 27.3 mmol/L (21-32); CHLORIDE 104 mmol/L (98-107); COR CA(FOR HYPOALB) 8.5 mg/dL (8.5-10.1); COR NA(FOR HYPERGLY) 140 mmol/L (136-145); GLUCOSE 111 mg/dL (65-99); POTASSIUM 3.5 mmol/L (3.5-5.1); SODIUM 140 mmol/L (136-145); TOTAL PROTEIN 6.9 g/dL (6.4-8.2); eGFR NON BLACK RACES > 60 (>60)
--- NOTE | 2023-04-13 23:58 | CT ---
HISTORYPatient stated that he has been hurting in his Right Groin that radiates up to the Right Upper Abdomen for a little over a month.STUDYABDOMEN/PELVIS W/O [id number]/12/2021.TECHNIQUEMultipl e axial images of the abdomen and pelvis were obtained from the lung bases to the pubic symphysis without the administration of IV contrast. Dose reduction techniques including Automated Exposure Control (AEC) and adjustment of mA and kV were utilized.FINDINGSLung bases are clear without effusion. The heart size is normal. There is a small hiatal hernia. The liver, gallbladder, pancreas, spleen, adrenal glands, and kidneys are normal. The stomach contains fluid and some nonspecific radiodensity which may be oral contrast. There is no abnormal dilation of the small bowel loops. The appendix is normal. The large bowel is normal. There is a fat containing right inguinal hernia. The urinary bladder is normal. The prostate is normal. There is no worrisome bone marrow lesion. There is moderate bilateral hip degeneration.IMPRESSIONFat containing right inguinal hernia with some induration in the herniated fat suggesting some degree of vascular compromise.Electronically signed by: Jayme Blue (Apr 13, 2023 23:55:13)
[2023-04-14 00:02] LABS: APPEARANCE,URINE CLEAR (CLEAR); BILIRUBIN,URINE NEGATIVE (NEGATIVE); BLOOD/HEMOGLOBIN,URINE NEGATIVE (NEGATIVE); COLOR,URINE YELLOW (YELLOW); GLUCOSE, URINE NEGATIVE (NEGATIVE); KETONES,URINE NEGATIVE (NEGATIVE); LEUKOCYTE ESTERASE ,URINE NEGATIVE (NEGATIVE); NITRITES,URINE NEGATIVE (NEGATIVE); PROTEIN,URINE TRACE (NEGATIVE); UROBILINOGEN,URINE NORMAL (NORMAL)
[2023-04-14 00:03] LABS: BACTERIA,URINE NEGATIVE /HPF (NEGATIVE); RBC,URINE NONE SEEN /HPF (0-3); SQUAMOUS EPITHELIAL CELL,UR RARE /HPF (NEGATIVE)
--- NOTE | 2023-04-14 00:14 | DR.EXTPAIN ---
HPI Time seen Time Seen by Provider: 04/14/23 00:13 PCP Primary Care Physician: ZAYDA HPI Comment HPI Comment: PATIENT IS 32YR OLD MALE IN ER WITH PAIN AND HERNIA IN RIGHT INGUINAL AREA. PATIENT HAVE HAD PROGRESSIVE DISCOMFORT IN RIGHT INGUINAL AREA FOR ONE MONTH. TODAY, HERNIA IS NOT NOT REDUCING COMPLETELUY AND IS MORE PAINFUL. JOSE VOMITING. NAUSEATED. NO FEVER OR DYSURIA. DENIES DIARRHEA. Complaint/Symptoms Chief Complaint Doctor Comments: RIGHT GROIN PAIN ON AND OFF TIMES ONE MONTH. WORSE TODAY. Chief Complaint:: Patient stated that he has been hurting in his Right Groin that radiates up to the Right Upper Abdomen for a little over a month. Self Treatment fo Chief Complaint: N/A COVID-19 Coronavirus risk:travel/contact w/high risk person: No Has patient experienced Coronavirus symptoms: No Nurses notes reviewed Nurses Notes Review: Yes Source History Provided: Patient Mode of arrival Mode of Arrival: Ambulatory Timing Onset of Chief Complaint: 03/11/23 PMH PMH Past Medical History: No Past Medical History: GERD and Headaches Past Surgical History: Yes Surgical History: Ortho Surgery Past Surgical History Comment: Ortho SX to Left Foot and Left Arm. Family History History of Family Medical Conditions: Yes Family Medical History: Diabetes Mellitus, Cancer, [place] and Hypertension Social History Does patient currently use any type of tobacco product: Yes Have you used tobacco products in the last 12 months: Yes Type of Tobacco Use: Cigarettes Does any household member use tobacco: No Alcohol Use: None Do you use any recreational Drugs:: Yes Lives With: Friend Lives Where: Home Travel Risk Coronavirus risk:travel/contact w/high risk person: No Has patient experienced Coronavirus symptoms: No Infectious screening In the last 2 months have you had wt loss of >10#?: NO Have you had fever, night sweats or hemotysis?: No Have you traveled outside the country in the last 6 months?: No Isolation: Standard ROS Review of Systems Constitutional: No Symptoms Reported Eyes: No Symptoms Reported Respiratoy: No Symptoms Reported Cardiovascular: No Symptoms Reported Gastrointestinal/Abdominal: No Symptoms Reported Genitourinary: No Symptoms Reported Neurological: No Symptoms Reported Musculoskeletal: No Symptoms Reported Integumentary: No Symptoms Reported Hematologic/Lymphatic: No Symptoms Reported Endocrine: No Symptoms Reported Psychiatric: No Symptoms Reported All Other Systems: Reviewed and Negative PE Vital Signs Vitals: Temperature 98.5 F Pulse Rate 87 Pulse Rate 88 Respiratory Rate 20 Respiratory Rate 20 Blood Pressure [Right Arm] 122/72 Blood Pressure [Left Arm] 128/60 Blood Pressure 131/76 Blood Pressure 138/75 O2 Sat by Pulse Oximetry 97 O2 Sat by Pulse Oximetry 98 General Limitations: No Limitations General Appearance: Alert and In No Apparent Distress Head Head Exam: Normal Inspection; negative Atraumatic Eyes Eye exam: Normal Appearance ENT ENT Exam: Normal Exam, Normal Oropharynx, Normal External Ear Exam and TM's Normal Bilaterally Neck Neck Exam: Normal Inspection and Trachea Midline; negative Tenderness Chest Chest Inspection: Normal Inspection and Symmetric Chest Wall Rise; negative Tenderness Respiratory Respiratory Exam: Normal Lung Sounds Bilat; negative Accessory Muscle Use, Chest Wall Tenderness or Respiratory Distress Respiratory Exam: Bilateral: Clear to Auscultation Cardiovascular Cardiovascular Exam: Regular Rate, Normal Rhythm and Normal Heart Sounds; negative Systolic Murmur or Diastolic Murmur Abdominal Exam Abdominal Exam: Normal Bowel Sounds, Soft, Tenderness (RT GROIN.) and Hernia (RIGHT INGUINAL HERNIA NOT COMPLETELY REDUCED.) Abdominal Tenderness: RLQ and Moderate Extremities Extremities Exam: Normal Inspection and Normal Capillary Refill Back Back Exam: Normal Inspection; negative (R) CVA Tenderness or (L) CVA Tenderness Neurological Neurological Exam: Alert and Oriented X3; negative Motor Sensory Deficit Skin Skin Exam: Intact MDM Differential Diagnosis Differential Diagnosis: Other (INCARCERATED RIGHT INGUINAL HERNIA, ABDOMINAL PAIN,) COURSE Treatment Treatment: SEE ORDERS DONE WHILE PATIENT WAS IN ER. PATIENT STARTED ON NS 125CC/HER AND GIVEN MORPHIN 4MG IV AND ZOFRAN 4MG IV WHILE IN ER. PAIN IMPROVED. HERNIA STILL NOT COMPLELY REDUCED. WILL ADMIT TO HOSPITAL FOR FURTHER EVALUATION. Consultation Consultation Comments: DISCUSSED PATIENT WITH DR. MCKEON, HE WILL ADMIT PATIENT. Education/Counseling Education/Counseling: Patient Educated On: Diagnosis ROR Labs Reviewed Laboratory Results Reviewed?: Yes Result Diagrams: 04/13/23 23:14 04/13/23 23:14 Laboratory: WBC 9.7 X10^3/uL (3.6-10.0) 04/13/23 23:14 RBC 4.43 X10^6/uL (4.7-6.0) L 04/13/23 23:14 Hgb 12.0 g/dL (13.5-18.0) L 04/13/23 23:14 Hct 35.4 % (42.0-54.0) L 04/13/23 23:14 MCV 79.9 fL (80.0-100.0) L 04/13/23 23:14 MCH 27.0 pg (27.0-34.0) 04/13/23 23:14 MCHC 33.8 g/dL (33.0-35.0) 04/13/23 23:14 RDW 14.9 % (11.6-16.5) 04/13/23 23:14 Plt Count 249 X10^3/uL (150.0-450.0) 04/13/23 23:14 MPV 6.8 fL (7.4-11.0) L 04/13/23 23:14 Neut % (Auto) 70.7 % (42.0-75.0) 04/13/23 23:14 Lymph % (Auto) 18.6 % (21.0-51.0) L 04/13/23 23:14 [place] % (Auto) 5.2 % (0.0-13.0) 04/13/23 23:14 Eos % (Auto) 2.6 % (0.9-2.9) 04/13/23 23:14 Baso % (Auto) 2.9 % (0.2-1.0) H 04/13/23 23:14 Neut # (Auto) 6.8 x10^3/uL (2.2-4.8) H 04/13/23 23:14 Lymph # (Auto) 1.8 X10^3/uL (1.3-2.9) 04/13/23 23:14 [place] # (Auto) 0.5 x10^3/uL (0.3-0.8) 04/13/23 23:14 Eos # (Auto) 0.3 x10^3/uL (0.0-0.2) H 04/13/23 23:14 Baso # (Auto) 0.3 X10^3/uL (0.0-0.1) H 04/13/23 23:14 Absolute Nucleated RBC 0.0 /100WBC 04/13/23 23:14 Sodium 140 mmol/L (136-145) 04/13/23 23:14 Corrected Sodium 140 mmol/L (136-145) 04/13/23 23:14 Potassium 3.5 mmol/L (3.5-5.1) 04/13/23 23:14 Chloride 104 mmol/L (98-107) 04/13/23 23:14 Carbon Dioxide 27.3 mmol/L (21-32) 04/13/23 23:14 BUN 13 mg/dL (7-18) 04/13/23 23:14 Creatinine 0.90 mg/dL (0.70-1.30) 04/13/23 23:14 Est GFR (MDRD) Af Amer > 60 (>60) 04/13/23 23:14 Est GFR (MDRD) Non-Af > 60 (>60) 04/13/23 23:14 Glucose 111 mg/dL (65-99) H 04/13/23 23:14 Calcium 7.9 mg/dL (8.5-10.1) L 04/13/23 23:14 Corrected Calcium 8.5 mg/dL (8.5-10.1) 04/13/23 23:14 Total Bilirubin 0.20 mg/dL (0.2-1.0) 04/13/23 23:14 AST 15 Units/L (15-37) 04/13/23 23:14 ALT 41 Units/L (12-78) 04/13/23 23:14 Alkaline Phosphatase 64 Units/L (46-116) 04/13/23 23:14 Total Protein 6.9 g/dL (6.4-8.2) 04/13/23 23:14 Albumin 3.3 g/dL (3.4-5.0) L 04/13/23 23:14 Globulin 3.6 g/dL (2.5-4.5) 04/13/23 23:14 Albumin/Globulin Ratio 0.9 Ratio (1.1-2.1) L 04/13/23 23:14 Specimen Type Clean catch urine 04/13/23 23:14 Urine Color Yellow (YELLOW) 04/13/23 23:14 Urine Appearance Clear (CLEAR) 04/13/23 23:14 Urine pH 6.0 (5.0 - 8.0) 04/13/23 23:14 Ur Specific [place] 1.025 (1.000-1.030) 04/13/23 23:14 Urine Protein Trace (NEGATIVE) 04/13/23 23:14 Urine Glucose (UA) Negative (NEGATIVE) 04/13/23 23:14 Urine Ketones Negative (NEGATIVE) 04/13/23 23:14 Urine Blood Negative (NEGATIVE) 04/13/23 23:14 Urine Nitrite Negative (NEGATIVE) 04/13/23 23:14 Urine Bilirubin Negative (NEGATIVE) 04/13/23 23:14 Urine Urobilinogen Normal (NORMAL) 04/13/23 23:14 Ur Leukocyte Esterase Negative (NEGATIVE) 04/13/23 23:14 Urine RBC None seen /HPF (0-3) 04/13/23 23:14 Urine WBC None seen /HPF (0-5) 04/13/23 23:14 Ur Squamous Epith Cells Rare /HPF (NEGATIVE) 04/13/23 23:14 Urine Bacteria Negative /HPF (NEGATIVE) 04/13/23 23:14 Ur Culture Indicated? No/not indicated 04/13/23 23:14 Urine Opiates Screen Positive (NEG=<300) 04/13/23 23:14 Urine Methadone Screen Negative (NEG=<300) 04/13/23 23:14 Ur Barbiturates Screen Negative (NEG=<200) 04/13/23 23:14 Ur Phencyclidine Scrn Negative (NEG=<25) 04/13/23 23:14 Ur Amphetamines Screen Positive (NEG=<1000) 04/13/23 23:14 U Benzodiazepines Scrn Negative (NEG=<200) 04/13/23 23:14 Urine Cocaine Screen Negative (NEG=<300) 04/13/23 23:14 U Marijuana (THC) Screen Negative (NEG=<50) 04/13/23 23:14 XRAY XRAY Interpreted by: Radiologist (REPORT NOTED.) and Self Opioid Opioid Risk Tool Personal Hx of Substance Abuse: Illegal Drugs Age (Rashi box if 16-45): Yes History of Preadolescent Sexual Abuse: No Total: 1 Total Score Risk Category: Low Risk Copyright: Rodolfo VELAZCO predicting aberrant behaviors Discharge Plan Diagnosis Discharge Problem: Irreducible right inguinal hernia, Abdominal pain Discharge Plan Patient Disposition: 09 ADMITTED INPATIENT Condition: Stable
[2023-04-14] MEDS ORDERED: MORPHINE SULFATE INJ 4 MG IVP ONE (00:29)
[2023-04-14] MEDS ORDERED: ZOFRAN INJ 4 MG VIAL IVP ONE (00:29)
[2023-04-14] MEDS ORDERED: MORPHINE SULFATE INJ 4 MG ONE (00:32)
[2023-04-14] MEDS ORDERED: ZOFRAN INJ 4 MG VIAL ONE (00:32)
[2023-04-14] MEDS ORDERED: ZOFRAN INJ 4 MG VIAL IVP PRN (01:32)
[2023-04-14] MEDS ORDERED: MORPHINE SULFATE INJ 2 MG INJ IVP PRN (01:32)
[2023-04-14] MEDS ORDERED: DILAUDID INJ IVP PRN (01:53)
[2023-04-14] MEDS ORDERED: LR 1,000 ML IV 1,000 ML IV ONE (01:54)
[2023-04-14] MEDS ORDERED: DILAUDID INJ ONE (01:54)
[2023-04-14] MEDS ORDERED: NS 1,000 ML IV 1,000 ML IV SCH (02:00)
[2023-04-14] MEDS ORDERED: LR 1,000 ML IV 1,000 ML IV SCH (02:00)
[2023-04-14 02:22] VITALS: BMI 28.7
[2023-04-14 05:25] LABS: BASOPHILS # (AUTO) 0.1 X10^3/uL (0.0-0.1); BASOPHILS % (AUTO) 0.6 % (0.2-1.0); EOSINOPHILS # (AUTO) 0.4 x10^3/uL (0.0-0.2); EOSINOPHILS % (AUTO) 4.1 % (0.9-2.9); HEMATOCRIT 35.1 % (42.0-54.0); HEMOGLOBIN 11.9 g/dL (13.5-18.0); LYMPHOCYTES # (AUTO) 2.9 X10^3/uL (1.3-2.9); LYMPHOCYTES % (AUTO) 32.6 % (21.0-51.0); MEAN CORPUSCULAR HEMOGLOBIN 26.7 pg (27.0-34.0); MEAN CORPUSCULAR HGB CONC 33.8 g/dL (33.0-35.0); MEAN PLATELET VOLUME 7.4 fL (7.4-11.0); MONOCYTES # (AUTO) 0.5 x10^3/uL (0.3-0.8); MONOCYTES % (AUTO) 5.7 % (0.0-13.0); PLATELET COUNT 248 X10^3/uL (150.0-450.0); RED BLOOD COUNT 4.45 X10^6/uL (4.7-6.0); RED CELL DISTRIBUTION WIDTH 14.4 % (11.6-16.5); WHITE BLOOD COUNT 8.8 X10^3/uL (3.6-10.0)
[2023-04-14 05:39] LABS: ALANINE AMINOTRANSFERASE 37 Units/L (12-78); ALBUMIN 3.1 g/dL (3.4-5.0); ALKALINE PHOSPHATASE 61 Units/L (46-116); ASPARTATE AMINO TRANSFERASE 14 Units/L (15-37); BLOOD UREA NITROGEN 11 mg/dL (7-18); CARBON DIOXIDE 25.1 mmol/L (21-32); CHLORIDE 105 mmol/L (98-107); COR CA(FOR HYPOALB) 8.7 mg/dL (8.5-10.1); CREATININE 0.74 mg/dL (0.70-1.30); GLUCOSE 94 mg/dL (65-99); POTASSIUM 3.7 mmol/L (3.5-5.1); SODIUM 139 mmol/L (136-145); TOTAL PROTEIN 6.5 g/dL (6.4-8.2); eGFR NON BLACK RACES > 60 (>60)
[2023-04-14] MEDS ORDERED: PERCOCET TAB 5/325 MG PO PRN (08:29)
[2023-04-14 09:28] VITALS: O2SAT 100
--- NOTE | 2023-04-14 12:55 | DR.H&P ---
H&P History & Physical for Day of: H&P Date: 04/14/23 Chief Complaint Chief Complaint: Right groin pain Allergies Allergies Allergy/AdvReac Type Severity Reaction Status Date / Time No Known Drug Allergies Allergy Verified 04/13/23 23:05 History of Present Illness History of Present Illness: 32 yo male, well known to ER staff and presents with 1 month history of right groin pain and swelling. Evaluated in ER and CT shows right inguinal hernia. ER physician said the hernia could not be completely reduced . Hx of substance abuse. Past Medical History Past Medical History: GERD and Headaches Additional Medical History: IV Drug Abuse - + Tox screen for amphetamines and marijuana Past Surgical History Surgical History: Ortho Surgery Family History Family Medical History: Diabetes Mellitus, Cancer, [place] and Hypertension Social History Does patient currently use any type of tobacco product: Yes Have you used tobacco products in the last 12 months: Yes Type of Tobacco Use: Cigarettes How many years tobacco product used: 15 Does any household member use tobacco: Yes Alcohol Use: Occasionally Drug Use: Methamphetamine and Other Labs Result Diagrams: 04/14/23 04:00 04/14/23 04:00 Labs: Laboratory WBC 8.8 X10^3/uL (3.6-10.0) 04/14/23 04:00 RBC 4.45 X10^6/uL (4.7-6.0) L 04/14/23 04:00 Hgb 11.9 g/dL (13.5-18.0) L 04/14/23 04:00 Hct 35.1 % (42.0-54.0) L 04/14/23 04:00 MCV 79.0 fL (80.0-100.0) L 04/14/23 04:00 MCH 26.7 pg (27.0-34.0) L 04/14/23 04:00 MCHC 33.8 g/dL (33.0-35.0) 04/14/23 04:00 RDW 14.4 % (11.6-16.5) 04/14/23 04:00 Plt Count 248 X10^3/uL (150.0-450.0) 04/14/23 04:00 MPV 7.4 fL (7.4-11.0) 04/14/23 04:00 Neut % (Auto) 57.0 % (42.0-75.0) 04/14/23 04:00 Lymph % (Auto) 32.6 % (21.0-51.0) 04/14/23 04:00 [place] % (Auto) 5.7 % (0.0-13.0) 04/14/23 04:00 Eos % (Auto) 4.1 % (0.9-2.9) H 04/14/23 04:00 Baso % (Auto) 0.6 % (0.2-1.0) 04/14/23 04:00 Neut # (Auto) 5.0 x10^3/uL (2.2-4.8) H 04/14/23 04:00 Lymph # (Auto) 2.9 X10^3/uL (1.3-2.9) 04/14/23 04:00 [place] # (Auto) 0.5 x10^3/uL (0.3-0.8) 04/14/23 04:00 Eos # (Auto) 0.4 x10^3/uL (0.0-0.2) H 04/14/23 04:00 Baso # (Auto) 0.1 X10^3/uL (0.0-0.1) 04/14/23 04:00 Absolute Nucleated RBC 0.0 /100WBC 04/14/23 04:00 Sodium 139 mmol/L (136-145) 04/14/23 04:00 Corrected Sodium TNP 04/14/23 04:00 Potassium 3.7 mmol/L (3.5-5.1) 04/14/23 04:00 Chloride 105 mmol/L (98-107) 04/14/23 04:00 Carbon Dioxide 25.1 mmol/L (21-32) 04/14/23 04:00 BUN 11 mg/dL (7-18) 04/14/23 04:00 Creatinine 0.74 mg/dL (0.70-1.30) 04/14/23 04:00 Est GFR (MDRD) Af Amer > 60 (>60) 04/14/23 04:00 Est GFR (MDRD) Non-Af > 60 (>60) 04/14/23 04:00 Glucose 94 mg/dL (65-99) 04/14/23 04:00 Calcium 8.0 mg/dL (8.5-10.1) L 04/14/23 04:00 Corrected Calcium 8.7 mg/dL (8.5-10.1) 04/14/23 04:00 Total Bilirubin 0.20 mg/dL (0.2-1.0) 04/14/23 04:00 AST 14 Units/L (15-37) L 04/14/23 04:00 ALT 37 Units/L (12-78) 04/14/23 04:00 Alkaline Phosphatase 61 Units/L (46-116) 04/14/23 04:00 Total Protein 6.5 g/dL (6.4-8.2) 04/14/23 04:00 Albumin 3.1 g/dL (3.4-5.0) L 04/14/23 04:00 Globulin 3.4 g/dL (2.5-4.5) 04/14/23 04:00 Albumin/Globulin Ratio 0.9 Ratio (1.1-2.1) L 04/14/23 04:00 Specimen Type Clean catch urine 04/13/23 23:14 Urine Color Yellow (YELLOW) 04/13/23 23:14 Urine Appearance Clear (CLEAR) 04/13/23 23:14 Urine pH 6.0 (5.0 - 8.0) 04/13/23 23:14 Ur Specific [place] 1.025 (1.000-1.030) 04/13/23 23:14 Urine Protein Trace (NEGATIVE) 04/13/23 23:14 Urine Glucose (UA) Negative (NEGATIVE) 04/13/23 23:14 Urine Ketones Negative (NEGATIVE) 04/13/23 23:14 Urine Blood Negative (NEGATIVE) 04/13/23 23:14 Urine Nitrite Negative (NEGATIVE) 04/13/23 23:14 Urine Bilirubin Negative (NEGATIVE) 04/13/23 23:14 Urine Urobilinogen Normal (NORMAL) 04/13/23 23:14 Ur Leukocyte Esterase Negative (NEGATIVE) 04/13/23 23:14 Urine RBC None seen /HPF (0-3) 04/13/23 23:14 Urine WBC None seen /HPF (0-5) 04/13/23 23:14 Ur Squamous Epith Cells Rare /HPF (NEGATIVE) 04/13/23 23:14 Urine Bacteria Negative /HPF (NEGATIVE) 04/13/23 23:14 Ur Culture Indicated? No/not indicated 04/13/23 23:14 Urine Opiates Screen Positive (NEG=<300) 04/13/23 23:14 Urine Methadone Screen Negative (NEG=<300) 04/13/23 23:14 Ur Barbiturates Screen Negative (NEG=<200) 04/13/23 23:14 Ur Phencyclidine Scrn Negative (NEG=<25) 04/13/23 23:14 Ur Amphetamines Screen Positive (NEG=<1000) 04/13/23 23:14 U Benzodiazepines Scrn Negative (NEG=<200) 04/13/23 23:14 Urine Cocaine Screen Negative (NEG=<300) 04/13/23 23:14 U Marijuana (THC) Screen Negative (NEG=<50) 04/13/23 23:14 Review of Systems Constitutional: See HPI Eyes: No Symptoms Reported ENT: No Symptoms Reported Respiratory: No Symptoms Reported Cardiovascular: No Symptoms Reported Gastrointestinal: No Symptoms Reported Genitourinary: See HPI Musculoskeletal: No Symptoms Reported Skin: No Symptoms Reported Neurological: No Symptoms Reported Physical Exam Vital Signs: Temperature 98.1 F Temperature 98.5 F Pulse Rate [Apical] 66 Pulse Rate 87 Pulse Rate 88 Respiratory Rate 18 Respiratory Rate 20 Blood Pressure [Right Arm] 120/73 Blood Pressure [Left Arm] 114/70 Blood Pressure 131/76 Blood Pressure 138/75 O2 Sat by Pulse Oximetry 100 O2 Sat by Pulse Oximetry 98 Oriented: Normal, Time, Person and Place Eyes: Normal Ear: Normal Nose: Normal Throat: Normal Respiratory: Clear Throughout Cardiovascular: Normal : Normal and Other (Right inguinal hernia easily reduced. ) Auscultation: Bowel Sounds: Normal Palpation: Normal Skin: Normal Musculoskeletal: Normal Psychiatric: Normal Mood Description: Anxious Affect: Normal Speech Pattern: Clear Assessment/Plan (1) Irreducible right inguinal hernia: Status: Acute Plan: Hernia reduced. will discharge home and encourage him to see me in the office to schedule elective hernia reapir (2) Substance abuse: Status: Acute
--- NOTE | 2023-04-14 13:02 | W.DIS.FURT ---
Summary of Discharge Discharge Summary of Date Date of Exam: 04/14/23 Admission Date Date of Admission: 04/14/23 Admission Diagnosis Patient Problems (Updated 04/14/23 @ 04:13 by OMAR ROBBINS) Irreducible right inguinal hernia (Acute) K40.30 Abdominal pain (Acute) R10.9 Hospital Course: 32 year old male who presented to the emergency room with one month history of right groin pain and questionable right inguinal hernia. CT scan in the emergency room showed a right inguinal hernia. ER staff could not completely reduce this hernia . He was placed on observation and I easily reduced the hernia this morning. He will be discharged at this time and follow up with me in the office to consider elective hernia repair. Vital Signs: Vital Signs (72 hours) 04/13/23 22:51 04/14/23 00:38 04/14/23 00:38 Temperature 98.5 F Pulse Rate 88 86 Pulse Rate [Apical] Respiratory Rate 20 20 Blood Pressure 135/75 Blood Pressure [Left Arm] Blood Pressure [Right Arm] O2 Sat by Pulse Oximetry 98 97 Oxygen Delivery Method Room Air 04/14/23 00:45 04/14/23 01:00 04/14/23 01:00 Temperature Pulse Rate 84 87 Pulse Rate [Apical] Respiratory Rate Blood Pressure 131/76 Blood Pressure [Left Arm] Blood Pressure [Right Arm] O2 Sat by Pulse Oximetry 98 97 Oxygen Delivery Method 04/14/23 01:25 04/14/23 02:11 04/14/23 01:28 Temperature 98.1 F Pulse Rate Pulse Rate [Apical] 75 Respiratory Rate 20 26 H Blood Pressure Blood Pressure [Left Arm] Blood Pressure [Right Arm] 127/67 O2 Sat by Pulse Oximetry 98 Oxygen Delivery Method Room Air Room Air 04/14/23 01:28 04/14/23 04:00 04/14/23 02:41 Temperature 98.1 F 98.5 F Pulse Rate Pulse Rate [Apical] 75 74 Respiratory Rate 26 H 23 20 Blood Pressure Blood Pressure [Left Arm] 127/67 114/70 Blood Pressure [Right Arm] O2 Sat by Pulse Oximetry 97 97 Oxygen Delivery Method Room Air Room Air 04/14/23 07:00 04/14/23 09:21 04/14/23 08:00 Temperature 98.1 F Pulse Rate Pulse Rate [Apical] 66 Respiratory Rate 18 18 Blood Pressure Blood Pressure [Left Arm] Blood Pressure [Right Arm] 120/73 O2 Sat by Pulse Oximetry 100 Oxygen Delivery Method Room Air Room Air 04/14/23 01:08 Temperature Pulse Rate Pulse Rate [Apical] Respiratory Rate 20 Blood Pressure Blood Pressure [Left Arm] Blood Pressure [Right Arm] O2 Sat by Pulse Oximetry Oxygen Delivery Method Labs: Laboratory Last Values WBC 8.8 X10^3/uL (3.6-10.0) 04/14/23 04:00 RBC 4.45 X10^6/uL (4.7-6.0) L 04/14/23 04:00 Hgb 11.9 g/dL (13.5-18.0) L 04/14/23 04:00 Hct 35.1 % (42.0-54.0) L 04/14/23 04:00 MCV 79.0 fL (80.0-100.0) L 04/14/23 04:00 MCH 26.7 pg (27.0-34.0) L 04/14/23 04:00 MCHC 33.8 g/dL (33.0-35.0) 04/14/23 04:00 RDW 14.4 % (11.6-16.5) 04/14/23 04:00 Plt Count 248 X10^3/uL (150.0-450.0) 04/14/23 04:00 MPV 7.4 fL (7.4-11.0) 04/14/23 04:00 Neut % (Auto) 57.0 % (42.0-75.0) 04/14/23 04:00 Lymph % (Auto) 32.6 % (21.0-51.0) 04/14/23 04:00 [place] % (Auto) 5.7 % (0.0-13.0) 04/14/23 04:00 Eos % (Auto) 4.1 % (0.9-2.9) H 04/14/23 04:00 Baso % (Auto) 0.6 % (0.2-1.0) 04/14/23 04:00 Neut # (Auto) 5.0 x10^3/uL (2.2-4.8) H 04/14/23 04:00 Lymph # (Auto) 2.9 X10^3/uL (1.3-2.9) 04/14/23 04:00 [place] # (Auto) 0.5 x10^3/uL (0.3-0.8) 04/14/23 04:00 Eos # (Auto) 0.4 x10^3/uL (0.0-0.2) H 04/14/23 04:00 Baso # (Auto) 0.1 X10^3/uL (0.0-0.1) 04/14/23 04:00 Absolute Nucleated RBC 0.0 /100WBC 04/14/23 04:00 Sodium 139 mmol/L (136-145) 04/14/23 04:00 Corrected Sodium TNP 04/14/23 04:00 Potassium 3.7 mmol/L (3.5-5.1) 04/14/23 04:00 Chloride 105 mmol/L (98-107) 04/14/23 04:00 Carbon Dioxide 25.1 mmol/L (21-32) 04/14/23 04:00 BUN 11 mg/dL (7-18) 04/14/23 04:00 Creatinine 0.74 mg/dL (0.70-1.30) 04/14/23 04:00 Est GFR (MDRD) Af Amer > 60 (>60) 04/14/23 04:00 Est GFR (MDRD) Non-Af > 60 (>60) 04/14/23 04:00 Glucose 94 mg/dL (65-99) 04/14/23 04:00 Calcium 8.0 mg/dL (8.5-10.1) L 04/14/23 04:00 Corrected Calcium 8.7 mg/dL (8.5-10.1) 04/14/23 04:00 Total Bilirubin 0.20 mg/dL (0.2-1.0) 04/14/23 04:00 AST 14 Units/L (15-37) L 04/14/23 04:00 ALT 37 Units/L (12-78) 04/14/23 04:00 Alkaline Phosphatase 61 Units/L (46-116) 04/14/23 04:00 Total Protein 6.5 g/dL (6.4-8.2) 04/14/23 04:00 Albumin 3.1 g/dL (3.4-5.0) L 04/14/23 04:00 Globulin 3.4 g/dL (2.5-4.5) 04/14/23 04:00 Albumin/Globulin Ratio 0.9 Ratio (1.1-2.1) L 04/14/23 04:00 Specimen Type Clean catch urine 04/13/23 23:14 Urine Color Yellow (YELLOW) 04/13/23 23:14 Urine Appearance Clear (CLEAR) 04/13/23 23:14 Urine pH 6.0 (5.0 - 8.0) 04/13/23 23:14 Ur Specific [place] 1.025 (1.000-1.030) 04/13/23 23:14 Urine Protein Trace (NEGATIVE) 04/13/23 23:14 Urine Glucose (UA) Negative (NEGATIVE) 04/13/23 23:14 Urine Ketones Negative (NEGATIVE) 04/13/23 23:14 Urine Blood Negative (NEGATIVE) 04/13/23 23:14 Urine Nitrite Negative (NEGATIVE) 04/13/23 23:14 Urine Bilirubin Negative (NEGATIVE) 04/13/23 23:14 Urine Urobilinogen Normal (NORMAL) 04/13/23 23:14 Ur Leukocyte Esterase Negative (NEGATIVE) 04/13/23 23:14 Urine RBC None seen /HPF (0-3) 04/13/23 23:14 Urine WBC None seen /HPF (0-5) 04/13/23 23:14 Ur Squamous Epith Cells Rare /HPF (NEGATIVE) 04/13/23 23:14 Urine Bacteria Negative /HPF (NEGATIVE) 04/13/23 23:14 Ur Culture Indicated? No/not indicated 04/13/23 23:14 Urine Opiates Screen Positive (NEG=<300) 04/13/23 23:14 Urine Methadone Screen Negative (NEG=<300) 04/13/23 23:14 Ur Barbiturates Screen Negative (NEG=<200) 04/13/23 23:14 Ur Phencyclidine Scrn Negative (NEG=<25) 04/13/23 23:14 Ur Amphetamines Screen Positive (NEG=<1000) 04/13/23 23:14 U Benzodiazepines Scrn Negative (NEG=<200) 04/13/23 23:14 Urine Cocaine Screen Negative (NEG=<300) 04/13/23 23:14 U Marijuana (THC) Screen Negative (NEG=<50) 04/13/23 23:14 Reason For Visit: RIGHT INGUINAL HERNIA WITH VASCULAR COMPROMISE Discharge Date Discharge Date: 04/14/23 Discharge Diagnosis All Active Problems (Updated 04/14/23 @ 04:13 by OMAR ROBBINS) Superficial thrombophlebitis of left upper extremity (Acute) Open wound of left upper extremity (Acute) Bacteremia (Acute) Cellulitis of left upper extremity (Acute) Substance abuse (Acute) Active substance abuse (Acute) Irreducible right inguinal hernia (Acute) Abdominal pain (Acute) Abscess of left arm (Acute) Microcytic anemia (Acute) Hypokalemia (Acute) Abscess of left forearm (Acute) Superficial thrombophlebitis of left upper extremity (Acute) Current recreational drug use (Acute) Overdose, drug (Acute) Cellulitis (Acute) Foot abscess, left (Acute) Dermatitis (Active) Gastroenteritis (Acute) Abdominal pain (Acute) Left ankle sprain (Acute) Bunion of left foot (Acute) Knee sprain (Acute) Fall (Acute) Multiple transverse process fractures (Acute) Fracture of transverse process of lumbar vertebra (Acute) Fracture of rib (Acute) STI (sexually transmitted infection) (Acute) Acute epididymitis (Acute) Tooth ache (Acute) Dental caries (Acute) Pain, dental (Acute) Acute gingivitis (Acute) Jaw pain (Acute) Back pain without sciatica (Acute) Elbow abrasion (Acute) Pain, dental (Acute) Elbow fracture (Acute) Gingivitis (Acute) Urinary tract stones (Acute) OD (overdose of drug) (Acute) UTI (urinary tract infection) (Acute) Opiate addiction (Acute) Amphetamine abuse (Acute) Cellulitis of left foot (Acute) Plan of Treatment: Continue with present treatment and follow up plan. Pt is to keep follow up appointment as instructed and take medications as ordered. Discharge Medications Discharge Medications: No Known Drug Allergies Allergy (Verified 04/13/23 23:05) Discharge Disposition Assessment: see hospital course Discharge Plan Discharge Plan Hospital Course: 32 year old male who presented to the emergency room with one month history of right groin pain and questionable right inguinal hernia. CT scan in the emergency room showed a right inguinal hernia. ER staff could not completely reduce this hernia . He was placed on observation and I easily reduced the hernia this morning. He will be discharged at this time and follow up with me in the office to consider elective hernia repair. Patient Disposition: 01 HOME, SELF-CARE Condition: Stable Health Concerns: Post Hospitalization: new medications and changes needed to prevent readmission or further decline. Pt educated and given instructions on all concerns. Care Plan Goals: Problem: Pain/Alteration in Comfort Goal: Improve/ Resolve Pain; Achieve Pain Tolerance Instructions: Take pain medications as prescribed. Contact your primary care provider if your pain is unrelieved or worsens. Follow up with primary care provider as directed. Plan of Treatment: Continue with present treatment and follow up plan. Pt is to keep follow up appointment as instructed and take medications as ordered. Assessment: see hospital course Prescription drug monitoring program results: PDMP was not reviewed Orders to Discharge Patient Discharge Orders: Discharge (Routine); Ordered 04/14/23 Ordered By: Juan Guzmán Follow ups/Referrals Follow ups/Referrals: NFD,None [Primary Care Provider] - 3 days Instructions Instructions: Inguinal Hernia, Adult, [id number], Hernia, Adult, [id number], Illegal Drug Use Information, Adult, Finding Treatment for Addic tion Stand Alone Forms: Excuse From Work or School
[2023-04-14 13:25] VITALS: BP 142/77; PULSE 70; TEMP 98.5
== END 2023-04-14 13:48 | disposition home or self-care (01) ==
LOC: ER 22:43 → INTOOBSV 04-14 01:01 → ICU 04-14 01:01
PROVIDERS: ADMIT Surgery; ATTEND Surgery
DX: R10.84 Generalized abdominal pain; F15.90 Other stimulant use, unspecified, uncomplicated; K40.30 Unilateral inguinal hernia, with obstruction, without gangrene, not specified as recurrent; K21.9 Gastro-esophageal reflux disease without esophagitis; F11.90 Opioid use, unspecified, uncomplicated

== ENCOUNTER 2024-08-02 02:31 | Observation (INO) ==
[2024-08-02 02:44] VITALS: BMI 26.6
--- NOTE | 2024-08-02 02:53 | DR.EXTPAIN ---
HPI Time seen Time Seen by Provider: 08/02/24 02:53 PCP Primary Care Physician: DEMARIO Complaint/Symptoms Chief Complaint:: Patient ambulatory in er with a raised area on his right forearm x3 days. Area noted to be red, warm to touch, and painful per pt. Self Treatment fo Chief Complaint: BC Powder COVID-19 Coronavirus risk:travel/contact w/high risk person: No Has patient experienced Coronavirus symptoms: No Source History Provided: Patient Mode of arrival Mode of Arrival: Ambulatory Timing Onset of Chief Complaint: 07/30/24 PMH PMH Past Medical History: Yes Past Medical History: GERD and Headaches Past Surgical History: Yes Surgical History: Ortho Surgery Family History History of Family Medical Conditions: Yes Family Medical History: Diabetes Mellitus and Cancer Social History Does patient currently use any type of tobacco product: Yes Have you used tobacco products in the last 12 months: Yes Type of Tobacco Use: Vape Does any household member use tobacco: Yes Alcohol Use: None Do you use any recreational Drugs:: No (pt denies drug use) Lives With: Family Lives Where: Home Travel Risk Coronavirus risk:travel/contact w/high risk person: No Has patient experienced Coronavirus symptoms: No Infectious screening Have you traveled outside the country in the last 6 months?: No Isolation: Standard PE Vital Signs Vitals: Vital Signs Temperature 98.0 F Pulse Rate 81 Respiratory Rate 20 Respiratory Rate 21 Respiratory Rate 21 Blood Pressure 140/78 O2 Sat by Pulse Oximetry 96 ROR Labs Reviewed 08/02/24 03:22 08/02/24 03:22 Laboratory: WBC 8.8 X10^3/uL (3.6-10.0) 08/02/24 03:22 RBC 4.59 X10^6/uL (4.7-6.0) L 08/02/24 03:22 Hgb 11.8 g/dL (13.5-18.0) L 08/02/24 03:22 Hct 35.2 % (42.0-54.0) L 08/02/24 03:22 MCV 76.7 fL (80.0-100.0) L 08/02/24 03:22 MCH 25.7 pg (27.0-34.0) L 08/02/24 03:22 MCHC 33.5 g/dL (33.0-35.0) 08/02/24 03:22 RDW 15.6 % (11.6-16.5) 08/02/24 03:22 Plt Count 241 X10^3/uL (150.0-450.0) 08/02/24 03:22 MPV 6.8 fL (7.4-11.0) L 08/02/24 03:22 Neut % (Auto) 68.6 % (42.0-75.0) 08/02/24 03:22 Lymph % (Auto) 21.0 % (21.0-51.0) 08/02/24 03:22 [place] % (Auto) 7.5 % (0.0-13.0) 08/02/24 03:22 Eos % (Auto) 2.5 % (0.9-2.9) 08/02/24 03:22 Baso % (Auto) 0.4 % (0.2-1.0) 08/02/24 03:22 Neut # (Auto) 6.1 x10^3/uL (2.2-4.8) H 08/02/24 03:22 Lymph # (Auto) 1.9 X10^3/uL (1.3-2.9) 08/02/24 03:22 [place] # (Auto) 0.7 x10^3/uL (0.3-0.8) 08/02/24 03:22 Eos # (Auto) 0.2 x10^3/uL (0.0-0.2) 08/02/24 03:22 Baso # (Auto) 0.0 X10^3/uL (0.0-0.1) 08/02/24 03:22 Absolute Nucleated RBC 0.1 /100WBC 08/02/24 03:22 Sodium 134 mmol/L (136-145) L 08/02/24 03:22 Corrected Sodium TNP 08/02/24 03:22 Potassium 3.8 mmol/L (3.5-5.1) 08/02/24 03:22 Chloride 100 mmol/L (98-107) 08/02/24 03:22 Carbon Dioxide 28.8 mmol/L (21-32) 08/02/24 03:22 BUN 15 mg/dL (7-18) 08/02/24 03:22 Creatinine 1.25 mg/dL (0.70-1.30) 08/02/24 03:22 Est GFR (MDRD) Af Amer > 60 (>60) 08/02/24 03:22 Est GFR (MDRD) Non-Af > 60 (>60) 08/02/24 03:22 Glucose 93 mg/dL (65-99) 08/02/24 03:22 Calcium 8.8 mg/dL (8.5-10.1) 08/02/24 03:22 Corrected Calcium TNP 08/02/24 03:22 Total Bilirubin 0.50 mg/dL (0.2-1.0) 08/02/24 03:22 AST 20 Units/L (15-37) 08/02/24 03:22 ALT 19 Units/L (12-78) 08/02/24 03:22 Alkaline Phosphatase 70 Units/L (46-116) 08/02/24 03:22 Total Protein 7.4 g/dL (6.4-8.2) 08/02/24 03:22 Albumin 3.4 g/dL (3.4-5.0) 08/02/24 03:22 Globulin 4.0 g/dL (2.5-4.5) 08/02/24 03:22 Albumin/Globulin Ratio 0.9 Ratio (1.1-2.1) L 08/02/24 03:22 Opioid Opioid Risk Tool Personal Hx of Substance Abuse: Illegal Drugs Age (Rashi box if 16-45): Yes History of Preadolescent Sexual Abuse: No Total: 1 Total Score Risk Category: Low Risk Copyright: Rodolfo VELAZCO predicting aberrant behaviors Discharge Plan Discharge Plan Patient Disposition: 01 HOME, SELF-CARE Condition: Stable Health Concerns: Post Hospitalization: new medications and changes needed to prevent readmission or further decline. Pt educated and given instructions on all concerns. Plan of Treatment: Continue with present treatment and follow up plan. Pt is to keep follow up appointment as instructed and take medications as ordered. Orders to Discharge Patient Discharge Orders: Transfer (Routine); Ordered 08/02/24 Ordered By: OMAR ROBBINS Follow ups/Referrals Follow ups/Referrals: NFD,None [Primary Care Provider] - 3 days Instructions Stand Alone Forms: Post Hospital Follow Up Care
[2024-08-02] MEDS: TORADOL 60 MG VIAL IM ONE (03:12)
[2024-08-02 03:32] LABS: BASOPHILS % (AUTO) 0.4 % (0.2-1.0); EOSINOPHILS # (AUTO) 0.2 x10^3/uL (0.0-0.2); EOSINOPHILS % (AUTO) 2.5 % (0.9-2.9); HEMATOCRIT 35.2 % (42.0-54.0); HEMOGLOBIN 11.8 g/dL (13.5-18.0); LYMPHOCYTES # (AUTO) 1.9 X10^3/uL (1.3-2.9); MEAN CORPUSCULAR HEMOGLOBIN 25.7 pg (27.0-34.0); MEAN CORPUSCULAR HGB CONC 33.5 g/dL (33.0-35.0); MEAN CORPUSCULAR VOLUME 76.7 fL (80.0-100.0); MEAN PLATELET VOLUME 6.8 fL (7.4-11.0); MONOCYTES # (AUTO) 0.7 x10^3/uL (0.3-0.8); MONOCYTES % (AUTO) 7.5 % (0.0-13.0); NEUTROPHILS # (AUTO) 6.1 x10^3/uL (2.2-4.8); NEUTROPHILS % (AUTO) 68.6 % (42.0-75.0); PLATELET COUNT 241 X10^3/uL (150.0-450.0); RED BLOOD COUNT 4.59 X10^6/uL (4.7-6.0); RED CELL DISTRIBUTION WIDTH 15.6 % (11.6-16.5); WHITE BLOOD COUNT 8.8 X10^3/uL (3.6-10.0)
[2024-08-02 03:42] LABS: ALANINE AMINOTRANSFERASE 19 Units/L (12-78); ALBUMIN 3.4 g/dL (3.4-5.0); ALKALINE PHOSPHATASE 70 Units/L (46-116); ASPARTATE AMINO TRANSFERASE 20 Units/L (15-37); BLOOD UREA NITROGEN 15 mg/dL (7-18); CALCIUM 8.8 mg/dL (8.5-10.1); CARBON DIOXIDE 28.8 mmol/L (21-32); CHLORIDE 100 mmol/L (98-107); CREATININE 1.25 mg/dL (0.70-1.30); GLUCOSE 93 mg/dL (65-99); POTASSIUM 3.8 mmol/L (3.5-5.1); SODIUM 134 mmol/L (136-145); TOTAL PROTEIN 7.4 g/dL (6.4-8.2); eGFR NON BLACK RACES > 60 (>60)
[2024-08-02] MEDS: VANCOMYCIN IV *PREMIX 1 G/200 ML BAG 1 G/200 ML PIGGYBACK IV ONE (04:38)
[2024-08-02] MEDS: TORADOL 30 MG VIAL IVP ONE (04:41)
[2024-08-02] MEDS ORDERED: PHARMACY CONSULT - VANCOMYCIN XX SCH ×2 (05:00→06:00)
--- NOTE | 2024-08-02 05:36 | RAD ---
EXAM:FOREARM, RIGHTHISTORY:Patient ambulatory in er with a raised area on his right forearm x3 days. Area noted to be red, warm to touch, and painful per pt. ; GERD, HUBBARD SX: ORTHOCOMPARISON:None available.FINDINGS:No acute cortical disruption or dislocation can be identified. There is soft tissue swelling involving the proximal and mid right forearm. There are 4 linear radiopaque foreign bodies within the soft tissues anterior to the distal forearm.IMPRESSION:No acute bony abnormality.Soft tissue swelling involving the proximal and mid right forearm with 4 linear radiopaque foreign bodies within the soft tissues anterior to the distal forearm, unchanged from prior study.THIS IS AN ELECTRONICALLY VERIFIED FINAL REPORT08/02/2024 5:32 AM - Electronically signed by Juni Reddy MD
[2024-08-02] MEDS: NS 1,000 ML IV 1,000 ML IV SCH ×2 (06:28→07:22)
[2024-08-02] MEDS: VSL#3 PROBIOTIC CAP 112.5 B PO SCH (08:40)
[2024-08-02] MEDS: LOVENOX INJ 40 MG SYR SC SCH (08:41)
[2024-08-02] MEDS ORDERED: VANCOMYCIN IV *PREMIX 1 G/200 ML BAG 1 G/200 ML PIGGYBACK IV SCH (09:00)
[2024-08-02 09:18] VITALS: BP 152/82; PULSE 67; TEMP 97.7; O2SAT 100
[2024-08-02] MEDS: TORADOL 30 MG VIAL IVP PRN (09:51)
[2024-08-02 10:31] VITALS: RESP 18
[2024-08-02] MEDS: NORCO 7.5/325 MG TAB PO PRN (10:53)
[2024-08-02] MEDS ORDERED: VANCOMYCIN IV *PREMIX 1.5 G/300 ML BAG 1.5 G/300 ML PIGGYBACK IV SCH (21:00)
[2024-08-04] MEDS ORDERED: PHARMACY COMMENT IV NR (08:00)
== END 2024-08-02 11:30 | disposition left against medical advice (07) ==
LOC: ER 02:34 → MED/SURG 02:34
PROVIDERS: ADMIT Obstetrics & Gynecology Obstetrics; ATTEND Obstetrics & Gynecology Obstetrics
DX: E87.1 Hypo-osmolality and hyponatremia; L03.113 Cellulitis of right upper limb; Z53.29 Procedure and treatment not carried out because of patient's decision for other reasons; L02.413 Cutaneous abscess of right upper limb; K21.9 Gastro-esophageal reflux disease without esophagitis